=== PATIENT | female | born 1940 | race American Indian/Alaskan Native ===

== ENCOUNTER 2020-01-18 19:31 | Emergency (ER) | payer MEDICARE ==
[2020-01-18 19:56] VITALS: BP 142/96
--- NOTE | 2020-01-18 20:07 | Event Note ---
ED Screening Note ED Screening Note: 79 yo got dizzy today and fell on her r shoulder and hip fall injury preceded by dizziness This initial assessment/diagnostic orders/clinical plan/treatment(s) is/are subject to change based on patients health status, clinical progression and re- assessment by fellow clinical providers in the ED. Further treatment and workup at subsequent clinical providers discretion. Patient/guardian urged not to elope from the ED as their condition may be serious if not clinically assessed and managed. Initial orders include: xr labs ua
[2020-01-18] MEDS ORDERED: ACETAMINOPHEN 325 MG TAB PO ONE (20:10)
[2020-01-18] MEDS ORDERED: ACETAMINOPHEN 325 MG TAB ONE (20:13)
[2020-01-18 20:43] LABS: Basophils % (Auto) 0.4 % (0.0-1.8); Eosinophils % (Auto) 1.3 % (0.0-4.3); Hematocrit 37.7 % (30.3-42.9); Hemoglobin 12.7 gm/dl (10.1-14.3); Lymphocytes # (Auto) 1.6 K/mm3 (1.2-5.4); Lymphocytes % (Auto) 42.9 % (13.4-35.0); Mean Corpuscular HGB Conc 34 % (30-34); Mean Corpuscular Volume 85 fl (79-97); Monocytes # (Auto) 0.3 K/mm3 (0.0-0.8); Monocytes % (Auto) 7.3 % (0.0-7.3); Platelet Count 196 K/mm3 (140-440); Red Blood Count 4.41 M/mm3 (3.65-5.03); Red Cell Distribution Width 14.2 % (13.2-15.2)
[2020-01-18 21:00] LABS: Alanine Aminotransferase 11 units/L (7-56); Albumin 4.3 g/dL (3.9-5); BUN/Creatinine Ratio 20; Blood Urea Nitrogen 20 mg/dL (7-17); Calcium 9.8 mg/dL (8.4-10.2); Hemolysis Index 7
--- NOTE | 2020-01-18 21:08 | XRay Report ---
RIGHT HIP 3 VIEW(S) INDICATION / CLINICAL INFORMATION: MAIN COMPARISON: None available. FINDINGS: BONES / JOINT(S): No acute fracture or subluxation. Mild degenerative changes are noted of the visual ized lumbosacral spine. Mild bilateral hip arthrosis. SOFT TISSUES: No significant abnormality. ADDITIONAL FINDINGS: Abundant fecal material noted throughout the large bowel and rectal vault. Corre late clinically for constipation. Signer Name: Deric Rodríguez MD Signed: 01/18/2020 9:04 PM Workstation Name: [id number]
--- NOTE | 2020-01-18 21:10 | XRay Report ---
RIGHT SHOULDER 3 VIEW(S) INDICATION / CLINICAL INFORMATION: Pain after a fall today COMPARISON: None available. FINDINGS: BONES / JOINT(S): No acute fracture. On the scapular Y view, the distal clavicle is slightly superior to the adjacent acromion. No significant arthritis. SOFT TISSUES: No significant abnormality. ADDITIONAL FINDINGS: None. IMPRESSION: 1. Possible low-grade AC joint separation. Correlation for point tenderness over the AC joint is mary mmended. 2. No acute fracture. Signer Name: Parish Ware MD Signed: 01/18/2020 9:05 PM Workstation Name: [id number]
[2020-01-18 21:20] LABS: Bilirubin,Urine NEG (Negative); Blood,Urine MOD (Negative); Color,Urine Straw (Yellow); Protein,Urine <15 mg/dL mg/dL (Negative); Urobilinogen,Urine < 2.0 mg/dL (<2.0)
[2020-01-19] MEDS ORDERED: IBUPROFEN 600 MG TAB PO ONE (03:25)
--- NOTE | 2020-01-19 03:32 | Emergency Department Report ---
HPI - General Chief Complaint: Dizziness Time Seen by Provider: 01/18/20 20:05 - HPI HPI: This an 79-year-old -Chinese female presents to the emergency department with a complaint of some pain to the right shoulder, tailbone and the right side of her neck after a slip and fall earlier this evening. Patient was shopping at an outlet store and as she exited she slipped on some water or liquid that was on the floor. She used her right upper extremity to shield her head from hitting the ground as she fell backwards and on her right side. She denies hitting her head or any loss of consciousness. She was helped up from the ground and at first felt slightly dizzy. She denies any vision change, slurred speech, numbness or paresthesias, or any neurological deficits. At the time of my examination the patient just complains of the joint or musculoskeletal pains. She has a past medical history of hypertension. She has not taken anything for symptoms prior to presentation. Her primary care physician is a Dr. Conway through [facility]. ED Past Medical Hx - Past Medical History Previous Medical History?: Yes Hx Hypertension: Yes - Surgical History Past Surgical History?: No - Social History Smoking Status: Never Smoker Substance Use Type: None - Medications Home Medications: Home Medications Medication Instructions Recorded Confirmed Last Taken Type Ibuprofen [Motrin 600 MG tab] 600 mg PO Q8H PRN #20 tablet 01/19/20 Unknown Rx ED Review of Systems ROS: Stated complaint: SLIP AND FALL,RIGHT SHOULDER/BACK PAIN Other details as noted in HPI Comment: All other systems reviewed and negative Constitutional: denies: chills, fever Eyes: denies: eye pain, vision change ENT: denies: ear pain, throat pain Respiratory: denies: cough, shortness of breath Cardiovascular: denies: chest pain, palpitations Gastrointestinal: denies: abdominal pain, vomiting Genitourinary: denies: dysuria, discharge Musculoskeletal: arthralgia. denies: joint swelling Skin: denies: rash, lesions Neurological: denies: headache, numbness, paresthesias Physical Exam - Physical Exam Vital Signs: Vital Signs 01/18/20 01/18/20 19:55 20:15 Temperature 98.1 F Pulse Rate 77 Respiratory 14 18 Rate Blood Pressure 142/96 O2 Sat by Pulse 98 Oximetry Physical Exam: GENERAL: The patient is well-developed well-nourished. HENT: Normocephalic. Atraumatic. Patient has moist mucous membranes. EYES: Extraocular motions are intact. No nystagmus. NECK: Supple. Trachea is midline. No midline tenderness to palpation. CHEST/LUNGS: Clear to auscultation. There is no respiratory distress noted. HEART/CARDIOVASCULAR: Regular. There is no tachycardia. There is no murmur. ABDOMEN: Abdomen is soft, nontender. Patient has normal bowel sounds. SKIN: Skin is warm and dry. NEURO: The patient is awake, alert, and oriented. The patient is cooperative. The patient has no focal neurologic deficits. Normal speech. Cranial nerves II through XII grossly intact. No facial asymmetry. MUSCULOSKELETAL: There is tenderness to palpation to the right shoulder but no obvious deformity. There is no limitation range of motion but the patient has pain with movement of the right upper extremity at the shoulder. Radial pulse +2/4 and capillary refill less than 2 seconds to the affected right upper extremity. No tenderness to palpation to compression of the pelvis. There is some tenderness to palpation to the sacrum. BACK: No midline thoracic or lumbar tenderness to palpation, step-off or deformity. ED Course Vital Signs 01/18/20 01/18/20 19:55 20:15 Temperature 98.1 F Pulse Rate 77 Respiratory 14 18 Rate Blood Pressure 142/96 O2 Sat by Pulse 98 Oximetry - Reevaluation(s) Reevaluation #1: 01/19/20 06:09 Lab Results 01/18/20 01/18/20 01/18/20 Range/Units 20:11 20:11 21:03 WBC 3.7 L (4.5-11.0) K/mm3 RBC 4.41 (3.65-5.03) M/mm3 Hgb 12.7 (10.1-14.3) gm/dl Hct 37.7 (30.3-42.9) % MCV 85 (79-97) fl MCH 29 (28-32) pg MCHC 34 (30-34) % RDW 14.2 (13.2-15.2) % Plt Count 196 (140-440) K/mm3 Lymph % (Auto) 42.9 H (13.4-35.0) % Coleman % (Auto) 7.3 (0.0-7.3) % Eos % (Auto) 1.3 (0.0-4.3) % Baso % (Auto) 0.4 (0.0-1.8) % Lymph # 1.6 (1.2-5.4) K/mm3 Coleman # 0.3 (0.0-0.8) K/mm3 Eos # 0.0 (0.0-0.4) K/mm3 Baso # 0.0 (0.0-0.1) K/mm3 Seg Neutrophils % 48.1 (40.0-70.0) % Seg Neutrophils # 1.8 (1.8-7.7) K/mm3 Sodium 139 (137-145) mmol/L Potassium 3.7 (3.6-5.0) mmol/L Chloride 99.1 (98-107) mmol/L Carbon Dioxide 28 (22-30) mmol/L Anion Gap 16 mmol/L BUN 20 H (7-17) mg/dL Creatinine 1.0 (0.6-1.2) mg/dL Estimated GFR > 60 ml/min BUN/Creatinine Ratio 20 % Glucose 96 (65-100) mg/dL Calcium 9.8 (8.4-10.2) mg/dL Total Bilirubin 0.20 (0.1-1.2) mg/dL AST 19 (5-40) units/L ALT 11 (7-56) units/L Alkaline Phosphatase 73 (35-129) units/L Troponin T < 0.010 (0.00-0.029) ng/mL Total Protein 6.9 (6.3-8.2) g/dL Albumin 4.3 (3.9-5) g/dL Albumin/Globulin Ratio 1.7 % Urine Color Straw (Yellow) Urine Turbidity Clear (Clear) Urine pH 7.0 (5.0-7.0) Ur Specific [place] 1.005 (1.003-1.030) Urine Protein <15 mg/dl (Negative) mg/dL Urine Glucose (UA) Neg (Negative) mg/dL Urine Ketones Neg (Negative) mg/dL Urine Blood Mod (Negative) Urine Nitrite Neg (Negative) Urine Bilirubin Neg (Negative) Urine Urobilinogen < 2.0 (<2.0) mg/dL Ur Leukocyte Esterase Tr (Negative) Urine WBC (Auto) 1.0 (0.0-6.0) /HPF Urine RBC (Auto) 3.0 (0.0-6.0) /HPF U Epithel Cells (Auto) 2.0 (0-13.0) /HPF Urine Yeast (Budding) Few /HPF 01/18/20 Range/Units 23:09 WBC (4.5-11.0) K/mm3 RBC (3.65-5.03) M/mm3 Hgb (10.1-14.3) gm/dl Hct (30.3-42.9) % MCV (79-97) fl MCH (28-32) pg MCHC (30-34) % RDW (13.2-15.2) % Plt Count (140-440) K/mm3 Lymph % (Auto) (13.4-35.0) % Coleman % (Auto) (0.0-7.3) % Eos % (Auto) (0.0-4.3) % Baso % (Auto) (0.0-1.8) % Lymph # (1.2-5.4) K/mm3 Coleman # (0.0-0.8) K/mm3 Eos # (0.0-0.4) K/mm3 Baso # (0.0-0.1) K/mm3 Seg Neutrophils % (40.0-70.0) % Seg Neutrophils # (1.8-7.7) K/mm3 Sodium (137-145) mmol/L Potassium (3.6-5.0) mmol/L Chloride (98-107) mmol/L Carbon Dioxide (22-30) mmol/L Anion Gap mmol/L BUN (7-17) mg/dL Creatinine (0.6-1.2) mg/dL Estimated GFR ml/min BUN/Creatinine Ratio % Glucose (65-100) mg/dL Calcium (8.4-10.2) mg/dL Total Bilirubin (0.1-1.2) mg/dL AST (5-40) units/L ALT (7-56) units/L Alkaline Phosphatase (35-129) units/L Troponin T < 0.010 (0.00-0.029) ng/mL Total Protein (6.3-8.2) g/dL Albumin (3.9-5) g/dL Albumin/Globulin Ratio % Urine Color (Yellow) Urine Turbidity (Clear) Urine pH (5.0-7.0) Ur Specific [place] (1.003-1.030) Urine Protein (Negative) mg/dL Urine Glucose (UA) (Negative) mg/dL Urine Ketones (Negative) mg/dL Urine Blood (Negative) Urine Nitrite (Negative) Urine Bilirubin (Negative) Urine Urobilinogen (<2.0) mg/dL Ur Leukocyte Esterase (Negative) Urine WBC (Auto) (0.0-6.0) /HPF Urine RBC (Auto) (0.0-6.0) /HPF U Epithel Cells (Auto) (0-13.0) /HPF Urine Yeast (Budding) /HPF ED Medical Decision Making - Lab Data Result diagrams: 01/18/20 20:11 01/18/20 20:11 - EKG Data -: EKG Interpreted by De EKG shows normal: sinus rhythm, axis (Left axis deviation), intervals (Prolonged HI interval), QRS complexes (LVH, left anterior fascicular block), ST-T waves Rate: normal - EKG Data When compared to previous EKG there are: previous EKG unavailable Interpretation: other (Sinus rhythm, left axis deviation, prolonged HI interval, LVH, left anterior fascicular block) - Radiology Data Radiology results: report reviewed CERVICAL SPINE 3 VIEWS INDICATION / CLINICAL INFORMATION: fall. COMPARISON: None available. FINDINGS: The C6 and C7 vertebral bodies are not seen on the lateral view. There is mild narrowing of the C3-4 disc space. No other significant ske letal abnormality SACRUM AND COCCYX 3 VIEWS INDICATION / CLINICAL INFORMATION: fall, tailbone pain. COMPARISON: None available. FINDINGS: There is separation of the coccyx from the sacrum which is probably chronic. No other significant skeletal abnormality RIGHT HIP 3 VIEW(S) INDICATION / CLINICAL INFORMATION: MAIN COMPARISON: None available. FINDINGS: BONES / JOINT(S): No acute fracture or subluxation. Mild degenerative changes are noted of the visualized lumbosacral spine. Mild bilateral hip arthrosis. SOFT TISSUES: No significant abnormality. ADDITIONAL FINDINGS: Abundant fecal material noted throughout the large bowel and rectal vault. Correlate clinically for constipation. RIGHT SHOULDER 3 VIEW(S) INDICATION / CLINICAL INFORMATION: Pain after a fall today COMPARISON: None available. FINDINGS: BONES / JOINT(S): No acute fracture. On the scapular Y view, the distal clavicle is slightly superior to the adjacent acromion. No significant arthritis. SOFT TISSUES: No significant abnormality. ADDITIONAL FINDINGS: None. IMPRESSION: 1. Possible low-grade AC joint separation. Correlation for point tenderness over the AC joint is recommended. 2. No acute fracture. - Medical Decision Making This patient presents to the emergency department with right shoulder pain, pain towards the right buttock and sacrum, and some right lateral neck pain after a slip and fall. She did not hit her head or have any loss of consciousness. She does not have any focal, motor or sensory deficits and her cranial nerves are intact. For these reasons I did not feel that advanced CT imaging of the head was necessary at this time. Patient had an x-ray of the right hip that also shows the full AP pelvis and there was no fracture, dislocation, or any acute process. X-ray of the right shoulder may show a possible low-grade AC separation but there is no fracture or dislocation. X-ray of the cervical spine also did not show any fracture, subluxation. Patient's labs were unremarkable. The initial dizziness after her fall has resolved upon presentation to the emergency department and has not returned. She was seen ambulatory in the ER and both appears and feels stable. She will be discharged home in a an arm sling, with prescription for anti-inflammatories, and an outpatient referral for an orthopedist. She will return to the ER with any worsening of her symptoms or with any acute distress. Critical Care Time: No Critical care attestation.: If time is entered above; I have spent that time in minutes in the direct care of this critically ill patient, excluding procedure time. ED Disposition Clinical Impression: Sacral back pain Fall Qualifiers: Encounter type: initial encounter Qualified Code(s): W19.XXXA - Unspecified fall, initial encounter Right shoulder pain Qualifiers: Chronicity: acute Qualified Code(s): M25.511 - Pain in right shoulder AC separation Qualifiers: Encounter type: initial encounter Laterality: right Qualified Code(s): S43.101A - Unspecified dislocation of right acromioclavicular joint, initial encounter Disposition: TO HOME OR SELFCARE Is pt being admited?: No Condition: Stable Instructions: Acromioclavicular Separation (ED), Arthralgia (ED), Fall Preve ntion (ED) Additional Instructions: Please follow-up with your primary care physician in the next few days. I am giving you a referral for a local orthopedist, Dr. Jordan, to follow-up regarding your right shoulder pain and the pain to your lower back/buttock. Return to the emergency department with any worsening of your symptoms or with any acute distress. Prescriptions: Ibuprofen [Motrin 600 MG tab] 600 mg PO Q8H PRN #20 tablet PRN Reason: Pain Referrals: GEOVANNA CONWAY MD [Primary Care Provider] - 3-5 Days LEO JORDAN MD [Staff Physician] - 3-5 Days Time of Disposition: 04:47
--- NOTE | 2020-01-19 04:43 | XRay Report ---
CERVICAL SPINE 3 VIEWS INDICATION / CLINICAL INFORMATION: fall. COMPARISON: None available. FINDINGS: The C6 and C7 vertebral bodies are not seen on the lateral view. There is mild narrowing of the C3-4 disc space. No other significant skeletal abnormality Signer Name: Maynor Alex MD FACR Signed: 01/19/2020 4:39 AM Workstation Name: [id number]
--- NOTE | 2020-01-19 04:44 | XRay Report ---
SACRUM AND COCCYX 3 VIEWS INDICATION / CLINICAL INFORMATION: fall, tailbone pain. COMPARISON: None available. FINDINGS: There is separation of the coccyx from the sacrum which is probably chronic. No other significant ske letal abnormality Signer Name: Maynor Alex MD FACR Signed: 01/19/2020 4:40 AM Workstation Name: [id number]
== END 2020-01-19 05:09 | disposition home or self-care (01) ==
LOC: ED 19:31
DX: S43.101A Unspecified dislocation of right acromioclavicular joint, initial encounter (principal); M25.511 Pain in right shoulder; M54.2 Cervicalgia; M54.9 Dorsalgia, unspecified; I10 Essential (primary) hypertension; F17.200 Nicotine dependence, unspecified, uncomplicated; Z79.899 Other long term (current) drug therapy; Z88.0 Allergy status to penicillin; W17.89XA Other fall from one level to another, initial encounter; Y93.89 Activity, other specified; Y92.89 Other specified places as the place of occurrence of the external cause; Y99.8 Other external cause status
CPT/HCPCS: 36415; 72040; 72220; 80053; 81001; 84484; 85025; 93005

== ENCOUNTER 2020-04-23 14:40 | Observation (INO) | payer MEDICARE, OTHER ==
--- NOTE | 2020-04-23 15:36 | Event Note ---
ED Screening Note Date of service: 04/23/20 Time: 15:35 ED Screening Note: 79-year-old -[place] female presents to the emergency room for 4-day history of left arm tingling and heaviness feels like it is numb. This initial assessment/diagnostic orders/clinical plan/treatment(s) is/are s ubject to change based on patients health status, clinical progression and re- assessment by fellow clinical providers in the ED. Further treatment and workup at subsequent clinical providers discretion. Patient/guardian urged not to elope from the ED as their condition may be serious if not clinically assessed and managed. Initial orders include:
[2020-04-23 16:25] LABS: Basophils % (Auto) 0.5 % (0.0-1.8); Eosinophils % (Auto) 1.2 % (0.0-4.3); Hematocrit 40.3 % (30.3-42.9); Hemoglobin 13.4 gm/dl (10.1-14.3); Lymphocytes # (Auto) 1.4 K/mm3 (1.2-5.4); Lymphocytes % (Auto) 36.8 % (13.4-35.0); Mean Corpuscular HGB Conc 33 % (30-34); Mean Corpuscular Volume 87 fl (79-97); Monocytes # (Auto) 0.3 K/mm3 (0.0-0.8); Monocytes % (Auto) 7.6 % (0.0-7.3); Platelet Count 167 K/mm3 (140-440); Red Blood Count 4.66 M/mm3 (3.65-5.03); Red Cell Distribution Width 14.1 % (13.2-15.2)
[2020-04-23 16:40] LABS: Alanine Aminotransferase 11 units/L (7-56); Albumin 4.3 g/dL (3.9-5); BUN/Creatinine Ratio 18; Blood Urea Nitrogen 14 mg/dL (7-17); Calcium 9.9 mg/dL (8.4-10.2); Hemolysis Index 13
[2020-04-23] MEDS ORDERED: NITROGLYCERIN 2% OINT 1 GM TP ONE (20:53)
[2020-04-23] MEDS ORDERED: ASPIRIN 325 MG TAB PO ONE (20:57)
--- NOTE | 2020-04-23 20:57 | Emergency Department Report ---
HPI - General Chief Complaint: Weakness Time Seen by Provider: 04/23/20 20:39 - HPI HPI: Room 5 The patient is an 79-year-old female present with a chief complaint of left upper extremity numbness and chest pain. The patient states for the past 2 weeks she has had intermittent numbness and pain in her left upper extremity. Patient denies preceding trauma. The patient states she received her flu shot in the left upper extremity 4 days ago. The patient states yesterday she developed pain in her left chest described as a heaviness and pressure that was intermittent in nature and associated with nausea/vomiting. Patient denies shortness of breath or diaphoresis. Patient denies cough or fever. Patient states her last cardiac catheterization occurred in the . Patient denies paresthesia in the lower extremities, or dysarthria, dysphagia ED Past Medical Hx - Past Medical History Hx Hypertension: Yes Additional medical history: Hypercholesterolemia - Surgical History Additional Surgical History: Hysterectomy, bilateral tubal ligation, finger fracture, goiter removal - Family History Family history: no significant - Social History Smoking Status: Former Smoker (None x10 years) Substance Use Type: None (Denies illicit drug use) - Medications Home Medications: Home Medications Medication Instructions Recorded Confirmed Last Taken Type Ibuprofen [Motrin 600 MG tab] 600 mg PO Q8H PRN #20 tablet 01/19/20 Unknown Rx ED Review of Systems ROS: Stated complaint: LEFT ARM NUMBNESS/NAUSEA Other details as noted in HPI Constitutional: denies: diaphoresis Eyes: denies: eye pain ENT: denies: throat pain Respiratory: denies: shortness of breath Cardiovascular: chest pain Endocrine: no symptoms reported Gastrointestinal: nausea, vomiting Genitourinary: denies: dysuria Musculoskeletal: denies: back pain Neurological: paresthesias Physical Exam - Physical Exam Vital Signs: Vital Signs 04/23/20 14:43 Temperature 98.7 F Pulse Rate 84 Respiratory 14 Rate Blood Pressure 136/85 O2 Sat by Pulse 98 Oximetry Physical Exam: GENERAL: The patient is well-developed well-nourished female lying on stretcher not appearing to be in acute distress. [] HEENT: Normocephalic. Atraumatic. Extraocular motions are intact. Patient has moist mucous membranes. NECK: Supple. Trachea midline CHEST/LUNGS: Clear to auscultation. There is no respiratory distress noted. HEART/CARDIOVASCULAR: Regular. There is no tachycardia. There is no gallop rub or murmur. 2+ left radial pulse. Normal capillary refill fingers of left hand. ABDOMEN: Abdomen is soft, nontender. Patient has normal bowel sounds. There is no abdominal distention. SKIN: There is no rash. There is no edema. There is no diaphoresis. NEURO: The patient is awake, alert, and oriented. The patient is cooperative. The patient has no focal neurologic deficits. The patient has normal speech. Cranial nerves II through XII grossly intact MUSCULOSKELETAL: There is no evidence of acute injury. ED Course Vital Signs 04/23/20 14:43 Temperature 98.7 F Pulse Rate 84 Respiratory 14 Rate Blood Pressure 136/85 O2 Sat by Pulse 98 Oximetry ED Medical Decision Making - Lab Data Result diagrams: 04/23/20 15:59 04/23/20 15:59 - EKG Data -: EKG Interpreted by Me EKG shows normal: sinus rhythm Rate: normal - EKG Data When compared to previous EKG there are: previous EKG unavailable Interpretation: other (No ischemic changes seen) - Differential Diagnosis ACS, pericarditis, cervical radiculopathy, rotator cuff injury, myalgia Critical care attestation.: If time is entered above; I have spent that time in minutes in the direct care of this critically ill patient, excluding procedure time. ED Disposition Clinical Impression: Left-sided chest pain Disposition: OP ADMIT IP TO THIS HOSP Is pt being admited?: Yes Does the pt Need Aspirin: Yes Condition: Fair Instructions: Chest Pain (ED) Referrals: PRIMARY CARE, [Primary Care Provider] - 3-5 Days HEART Score - HEART Score History: Moderately suspicious EKG: Normal Age: > 65 Risk factors: 1-2 risk factors Troponin: Troponin T < 0.010 ng/mL (0.00-0.029) 04/23/20 21:15 Troponin: < normal limit HEART Score: 4
--- NOTE | 2020-04-23 22:45 | XRay Report ---
CHEST 1 VIEW 04/23/2020 8:56 PM INDICATION / CLINICAL INFORMATION: chest pain. COMPARISON: None available. FINDINGS: SUPPORT DEVICES: None. HEART / MEDIASTINUM: No significant abnormality. LUNGS / PLEURA: No significant pulmonary or pleural abnormality. No pneumothorax. ADDITIONAL FINDINGS: No significant additional findings. IMPRESSION: 1. No acute findings. Signer Name: Gerardo Lamb MD Signed: 04/23/2020 10:41 PM Workstation Name: [id number]
[2020-04-23] MEDS ORDERED: MORPHINE 2 MG/1 ML INJ IV PRN (23:02)
[2020-04-23] MEDS ORDERED: ACETAMINOPHEN 325 MG TAB PO PRN ×2 (23:02)
[2020-04-23] MEDS ORDERED: NITROGLYCERIN 0.4 MG TAB SUBL SL PRN (23:02)
[2020-04-23] MEDS ORDERED: ONDANSETRON 4 MG/2 ML INJ IV PRN (23:02)
--- NOTE | 2020-04-23 23:15 | History and Physical Report ---
History of Present Illness Date of examination: 04/23/20 Date of admission: 04/23/20 22:05 Chief complaint: Chest pain History of present illness: 79-year-old -[place] female with known history of hypertension, hyperlipidemia presenting to the emergency room today complaining of chest pain which is left-sided. Preceding the onset of chest pain which she has been having left arm numbness which has been ongoing for about 2 weeks. Patient denies any trauma to the shoulder or arm and denies any fall. She indicates that she got flu shot few days ago. Chest pain is said to feel like heaviness and pressure which was intermittent and associated with nausea and vomiting. There is no no relieving or exacerbating factor. She denies any fever or chills, no headache or dizziness, no shortness of breath, no diaphoresis. Patient indicates that she had a cardiac catheterization sometime in the early and she is not starting whether there was a coronary blockage but she was started on cholesterol medication. There was no stents placement. Work-up in the emergency room today including EKG troponin and chest x-ray were unremarkable. Patient to be worked up for chest pain. Past History Past Medical History: hypertension, hyperlipidemia Past Surgical History: thyroidectomy, hysterectomy, Other (Bilateral tubal ligation,) Social history: smoking (Former smoker) Family history: no significant family history Medications and Allergies Allergies Allergy/AdvReac Type Severity Reaction Status Date / Time Penicillins Allergy Swelling Verified 04/23/20 14:51 Home Medications Medication Instructions Recorded Confirmed Last Taken Type Ibuprofen [Motrin 600 MG tab] 600 mg PO Q8H PRN #20 tablet 01/19/20 Unknown Rx Active Meds: Active Medications Acetaminophen (Tylenol) 650 mg PO Q4H PRN PRN Reason: Pain MILD(1-3)/Fever >100.5/SANCHEZ Acetaminophen (Tylenol) 650 mg PO Q6H PRN PRN Reason: Pain, Mild (1-3) Aspirin (Ecotrin) 325 mg PO QDAY JESSICA Enoxaparin Sodium (Enoxaparin) 40 mg SUB-Q QDAY@2200 JESSICA; Protocol Morphine Sulfate (Morphine) 2 mg IV Q5MIN PRN PRN Reason: Chest Pain Nitroglycerin (Nitrostat) 0.4 mg SL Q5M PRN PRN Reason: Chest Pain Ondansetron HCl (Zofran) 4 mg IV Q8H PRN PRN Reason: Nausea And Vomiting Sodium Chloride (Sodium Chloride Flush Syringe 10 Ml) 10 ml IV BID JESSICA Sodium Chloride (Sodium Chloride Flush Syringe 10 Ml) 10 ml IV PRN PRN PRN Reason: LINE FLUSH Sodium Chloride (Sodium Chloride Flush Syringe 10 Ml) 10 ml IV PRN PRN PRN Reason: LINE FLUSH Review of Systems Constitutional: no fever, no chills Ears, nose, mouth and throat: no nasal congestion, no sore throat Cardiovascular: chest pain, no palpitations Respiratory: no cough, no shortness of breath Gastrointestinal: no abdominal pain, no nausea, no vomiting, no diarrhea Genitourinary Female: no flank pain, no dysuria, no hematuria Musculoskeletal: no neck pain, no low back pain Integumentary: no rash, no pruritis Neurological: no headaches, no confusion Psychiatric: no anxiety, no depression Exam - Constitutional Vitals: Temp Pulse Resp BP Pulse Ox 98.7 F 76 19 131/83 99 04/23/20 14:43 04/23/20 22:16 04/23/20 22:16 04/23/20 22:16 04/23/20 22:16 General appearance: Present: no acute distress, well-nourished - EENT Eyes: Present: PERRL, EOM intact. Absent: scleral icterus ENT: hearing intact, clear oral mucosa, dentition normal - Neck Neck: Present: supple, normal ROM - Respiratory Respiratory effort: normal Respiratory: bilateral: CTA - Cardiovascular Rhythm: regular Heart Sounds: Present: S1 & S2. Absent: gallop, systolic murmur, diastolic murmur, rub - Extremities Extremities: no ischemia, pulses intact, pulses symmetrical, No edema, Full ROM Peripheral Pulses: within normal limits - Abdominal General gastrointestinal: Present: soft, non-tender, non-distended, normal bowel sounds. Absent: mass - Integumentary Integumentary: Present: clear, warm, dry. Absent: rash - Musculoskeletal Musculoskeletal: strength equal bilaterally - Psychiatric Psychiatric: appropriate mood/affect, intact judgment & insight, memory intact, cooperative - Neurologic Neurologic: CNII-XII intact, no focal deficits, moves all extremities HEART Score - HEART Score History: Moderately suspicious EKG: Normal Age: > 65 Risk factors: 1-2 risk factors Troponin: Troponin T < 0.010 ng/mL (0.00-0.029) 04/23/20 21:15 Troponin: < normal limit HEART Score: 4 Results - Labs CBC & Chem 7: 04/23/20 23:57 04/23/20 23:57 Labs: Abnormal lab results 04/23/20 04/23/20 Range/Units 15:59 15:59 WBC 3.8 L (4.5-11.0) K/mm3 Lymph % (Auto) 36.8 H (13.4-35.0) % [place] % (Auto) 7.6 H (0.0-7.3) % Carbon Dioxide 31 H (22-30) mmol/L Glucose 105 H (65-100) mg/dL Assessment and Plan - Patient Problems (1) Chest pain Current Visit: Yes Status: Acute Plan to address problem: Patient admitted to telemetry. Will check serial cardiac enzymes. Patient started on aspirin, sublingual nitroglycerin and IV morphine as needed for chest pain. We will place a consult to cardiology for evaluation. (2) Hyperlipidemia Current Visit: Yes Status: Acute Plan to address problem: We will continue routine home medication and monitor lipid profile. (3) Hypertension Current Visit: Yes Status: Acute Plan to address problem: Blood pressure appears stable. We will resume routine home medications and monitor vital signs closely. (4) DVT prophylaxis Current Visit: Yes Status: Acute Plan to address problem: Patient placed on subcutaneous Lovenox. (5) Full code status Current Visit: Yes Status: Acute
[2020-04-23] MEDS ORDERED: ENOXAPARIN 40 MG/0.4 ML INJ SUB-Q ONE (23:25)
[2020-04-24] MEDS ORDERED: METOPROLOL TARTRATE 5 MG/5 ML INJ IV ONE (00:24)
[2020-04-24 00:55] LABS: Basophils % (Auto) 0.3 % (0.0-1.8); Eosinophils # (Auto) 0.1 K/mm3 (0.0-0.4); Eosinophils % (Auto) 1.6 % (0.0-4.3); Hematocrit 38.9 % (30.3-42.9); Lymphocytes # (Auto) 1.9 K/mm3 (1.2-5.4); Lymphocytes % (Auto) 38.6 % (13.4-35.0); Mean Corpuscular HGB Conc 33 % (30-34); Mean Corpuscular Volume 86 fl (79-97); Monocytes # (Auto) 0.4 K/mm3 (0.0-0.8); Monocytes % (Auto) 8.1 % (0.0-7.3); Platelet Count 161 K/mm3 (140-440); Red Blood Count 4.53 M/mm3 (3.65-5.03); Red Cell Distribution Width 14.3 % (13.2-15.2)
[2020-04-24 01:10] LABS: Blood Urea Nitrogen 13 mg/dL (7-17); Calcium 9.5 mg/dL (8.4-10.2); Hemolysis Index 8
[2020-04-24 01:19] LABS: BUN/Creatinine Ratio 19
[2020-04-24 03:11] LABS: Chol/HDL Ratio 2.15 %
[2020-04-24 06:20] LABS: Basophils % (Auto) 0.6 % (0.0-1.8); Eosinophils # (Auto) 0.1 K/mm3 (0.0-0.4); Eosinophils % (Auto) 1.7 % (0.0-4.3); Hematocrit 36.9 % (30.3-42.9); Hemoglobin 12.3 gm/dl (10.1-14.3); Lymphocytes # (Auto) 1.6 K/mm3 (1.2-5.4); Lymphocytes % (Auto) 38.6 % (13.4-35.0); Mean Corpuscular HGB Conc 33 % (30-34); Mean Corpuscular Volume 87 fl (79-97); Monocytes # (Auto) 0.4 K/mm3 (0.0-0.8); Monocytes % (Auto) 9.1 % (0.0-7.3); Platelet Count 148 K/mm3 (140-440); Red Blood Count 4.24 M/mm3 (3.65-5.03)
[2020-04-24 06:31] LABS: INR 1.19 (0.87-1.13)
[2020-04-24 06:34] LABS: BUN/Creatinine Ratio 17; Blood Urea Nitrogen 15 mg/dL (7-17); Calcium 9.4 mg/dL (8.4-10.2); Hemolysis Index 2
[2020-04-24] MEDS ORDERED: REGADENOSON 0.4 MG/5 ML INJ IV SCH (07:02)
[2020-04-24] MEDS ORDERED: REGADENOSON 0.4 MG/5 ML INJ IV ONE (07:02)
[2020-04-24] MEDS ORDERED: ASPIRIN EC 325 MG TAB PO SCH (10:00)
[2020-04-24] MEDS ORDERED: METOPROLOL TARTRATE 5 MG/5 ML INJ IV NR (11:00)
--- NOTE | 2020-04-24 11:40 | Progress Note ---
<SALINAS MONTENEGRO - Last Filed: 04/24/20 11:44> Assessment and Plan - Patient Problems (1) ACS (acute coronary syndrome) Current Visit: Yes Status: Acute Plan to address problem: Rule out 04/24 Lexiscan stress test Cardiology consulted Serial cardiac enzymes have been less than 0.01 As needed nitroglycerin and morphine Daily aspirin Telemetry monitoring Supportive care Serial ECGs with chest pain as needed (2) Hypertension Current Visit: Yes Status: Chronic Plan to address problem: Resumed hypertensive regimen once obtained and appropriate Blood pressure monitoring per protocol (3) Hyperlipidemia Current Visit: Yes Status: Chronic Plan to address problem: Continue home statin therapy once obtained (4) DVT prophylaxis Current Visit: Yes Status: Acute Plan to address problem: SCDs to bilateral lower extremity while in bed Lovenox subcu History Interval history: This is an 79-year-old female with HTN and HLD who presented to the emergency department on 04/23 complaining of intermittent left-sided chest heaviness and pressure associated with nausea and vomiting preceded by left arm numbness. Her numbness has been ongoing for about 2 weeks after she has gotten her flu shot. Recommend emergency department reveals unremarkable EKG, troponin, CXR. Cardiology was consulted and patient was scheduled for a stress test this a.m. She received her stress test this morning. RN asked to update home medication list. Patient does not complain of any chest discomfort or left arm numbness. Hospitalist Physical - Constitutional Vitals: Temp Pulse Resp BP Pulse Ox 98.8 F 120 H 18 124/83 99 04/24/20 08:05 04/24/20 10:35 04/24/20 08:05 04/24/20 10:46 04/24/20 08:05 General appearance: Present: no acute distress, well-nourished - EENT Eyes: Present: PERRL, EOM intact ENT: hearing intact, clear oral mucosa - Neck Neck: Present: supple, normal ROM - Respiratory Respiratory effort: normal Respiratory: bilateral: CTA - Cardiovascular Rhythm: regular Heart Sounds: Present: S1 & S2. Absent: systolic murmur, diastolic murmur - Extremities Extremities: no ischemia, pulses intact, pulses symmetrical, No edema, normal temperature, normal color, Full ROM Peripheral Pulses: within normal limits - Abdominal General gastrointestinal: soft, non-tender, non-distended, normal bowel sounds - Integumentary Integumentary: Present: clear, warm, dry - Psychiatric Psychiatric: appropriate mood/affect, cooperative - Neurologic Neurologic: CNII-XII intact, no focal deficits, moves all extremities - Allied Health Allied health notes reviewed: nursing HEART Score - HEART Score EKG: Normal Age: > 65 Risk factors: 1-2 risk factors Troponin: Troponin T < 0.010 ng/mL (0.00-0.029) 04/24/20 05:37 Troponin: < normal limit Results - Labs CBC & Chem 7: 04/24/20 05:37 04/24/20 05:37 Labs: Laboratory Last Values WBC 4.2 K/mm3 (4.5-11.0) L 04/24/20 05:37 RBC 4.24 M/mm3 (3.65-5.03) 04/24/20 05:37 Hgb 12.3 gm/dl (10.1-14.3) 04/24/20 05:37 Hct 36.9 % (30.3-42.9) 04/24/20 05:37 MCV 87 fl (79-97) 04/24/20 05:37 MCH 29 pg (28-32) 04/24/20 05:37 MCHC 33 % (30-34) 04/24/20 05:37 RDW 14.0 % (13.2-15.2) 04/24/20 05:37 Plt Count 148 K/mm3 (140-440) 04/24/20 05:37 Lymph % (Auto) 38.6 % (13.4-35.0) H 04/24/20 05:37 [place] % (Auto) 9.1 % (0.0-7.3) H 04/24/20 05:37 Eos % (Auto) 1.7 % (0.0-4.3) 04/24/20 05:37 Baso % (Auto) 0.6 % (0.0-1.8) 04/24/20 05:37 Lymph # (Auto) 1.6 K/mm3 (1.2-5.4) 04/24/20 05:37 [place] # (Auto) 0.4 K/mm3 (0.0-0.8) 04/24/20 05:37 Eos # (Auto) 0.1 K/mm3 (0.0-0.4) 04/24/20 05:37 Baso # (Auto) 0.0 K/mm3 (0.0-0.1) 04/24/20 05:37 Seg Neutrophils % 50.0 % (40.0-70.0) 04/24/20 05:37 Seg Neutrophils # 2.1 K/mm3 (1.8-7.7) 04/24/20 05:37 PT 15.3 Sec. (12.2-14.9) H 04/24/20 05:37 INR 1.19 (0.87-1.13) H 04/24/20 05:37 Sodium 142 mmol/L (137-145) 04/24/20 05:37 Potassium 4.1 mmol/L (3.6-5.0) 04/24/20 05:37 Chloride 102.9 mmol/L (98-107) 04/24/20 05:37 Carbon Dioxide 32 mmol/L (22-30) H 04/24/20 05:37 Anion Gap 11 mmol/L 04/24/20 05:37 BUN 15 mg/dL (7-17) 04/24/20 05:37 Creatinine 0.9 mg/dL (0.6-1.2) 04/24/20 05:37 Estimated GFR > 60 ml/min 04/24/20 05:37 BUN/Creatinine Ratio 17 % 04/24/20 05:37 Glucose 102 mg/dL (65-100) H 04/24/20 05:37 Calcium 9.4 mg/dL (8.4-10.2) 04/24/20 05:37 Total Bilirubin 0.50 mg/dL (0.1-1.2) 04/23/20 15:59 AST 17 units/L (5-40) 04/23/20 15:59 ALT 11 units/L (7-56) 04/23/20 15:59 Alkaline Phosphatase 80 units/L (35-129) 04/23/20 15:59 Troponin T < 0.010 ng/mL (0.00-0.029) 04/24/20 05:37 Total Protein 7.5 g/dL (6.3-8.2) 04/23/20 15:59 Albumin 4.3 g/dL (3.9-5) 04/23/20 15:59 Albumin/Globulin Ratio 1.3 % 04/23/20 15:59 Triglycerides 74 mg/dL (2-149) 04/23/20 23:57 Cholesterol 127 mg/dL (50-199) 04/23/20 23:57 LDL Cholesterol Direct 60 mg/dL (50-130) 04/23/20 23:57 HDL Cholesterol 59 mg/dL (40-59) 04/23/20 23:57 Cholesterol/HDL Ratio 2.15 % 04/23/20 23:57 [place]/IV: Voiding Method Toilet IV Catheter Type [Right INT / Saline Lock Antecubital] Active Medications - Current Medications Current Medications: Generic Name Dose Route Start Last Admin Trade Name Freq PRN Reason Stop Dose Admin Acetaminophen 650 mg 04/23/20 23:02 Tylenol PO Q4H PRN Pain MILD(1-3)/Fever >100.5/SANCHEZ Aspirin 325 mg 04/24/20 10:00 Ecotrin PO QDAY [facility] Enoxaparin Sodium 40 mg 04/24/20 22:00 Enoxaparin SUB-Q QDAY@2200 [facility] Protocol Metoprolol Tartrate 2.5 mg 04/24/20 11:00 04/24/20 10:35 Metoprolol IV 04/24/20 12:30 2.5 mg ONCE NR Administration Morphine Sulfate 2 mg 04/23/20 23:02 Morphine IV Q5MIN PRN Chest Pain Nitroglycerin 0.4 mg 04/23/20 23:02 Nitrostat SL Q5M PRN Chest Pain Ondansetron HCl 4 mg 04/23/20 23:02 Zofran IV Q8H PRN Nausea And Vomiting Sodium Chloride 10 ml 04/24/20 10:00 Sodium Chloride Flush Syringe 10 Ml IV BID JESSICA Sodium Chloride 10 ml 04/23/20 23:02 Sodium Chloride Flush Syringe 10 Ml IV PRN PRN LINE FLUSH Nutrition/Malnutrition Assess - Dietary Evaluation Nutrition/Malnutrition Findings: Nutrition Notes Start: 04/24/20 11:03 Freq: Status: Active Protocol: Document 04/24/20 11:04 LM (Rec: 04/24/20 11:10 LM [id number]) Nutrition Notes Need for Assessment generated from: MD Order,transcribing operator head,MST Initial or Follow up Brief Note Current Diagnosis Hypertension,Hyperlipidemia Other Pertinent Diagnosis Chest pain Current Diet Dietary supplements Labs/Tests Reviewed Pertinent Medications Reviewed Height 5 ft 4 in Weight 59.5 kg [place] Body Weight (kg) 54.54 BMI 22.5 Subjective/Other Information MD consult for ONS and RN screen for MST. Pt was not in room at time of visit. Ensure in diet orders. Burn Absent Trauma Absent Minimum of two criteria No physical signs of malnutrition #1 Nutrition Diagnosis Inadequate oral intake Etiology chest pain As Evidenced by Signs and Symptoms pt on dietary supplement diet Is patient on ventilator? No Is Patient Ambulatory and/or Out of Bed Yes REE-([place]-St. Jeor-ambulatory/OOB) [ 1365.000 NUTR.MSJOOB] Calculation Used for Recommendations [facility] Additional Notes Protein: 60-71g (1-1.2g/kg) Fluid: 1ml/kcal Nutrition Intervention Change Diet Order: cardiac when medically feasible Add Supplement/Snack (indicate name/kcal Ensure Enlive BID /protein ) Provides kCal: 700 Provides Protein (gm) 40 Goal #1 Diet advancement Anticipated Discharge Needs: cardiac Follow-Up By: 04/26/20 Additional Comments F/U for diet advancement, intakes, full assessment <SRIDHAR THOMAS R - Last Filed: 04/24/20 14:50> Assessment and Plan Assessment and plan: I saw and evaluated the patient. I agree with the findings and the plan of care as documented in the Nurse Practitioner's~note. Hospitalist Physical - Constitutional Vitals: Temp Pulse Resp BP Pulse Ox 98.8 F 120 H 18 124/83 99 04/24/20 08:05 04/24/20 10:35 04/24/20 08:05 04/24/20 10:46 04/24/20 08:05 HEART Score - HEART Score Troponin: Troponin T < 0.010 ng/mL (0.00-0.029) 04/24/20 05:37 Results - Labs CBC & Chem 7: 04/24/20 05:37 04/24/20 05:37 Labs: Laboratory Last Values WBC 4.2 K/mm3 (4.5-11.0) L 04/24/20 05:37 RBC 4.24 M/mm3 (3.65-5.03) 04/24/20 05:37 Hgb 12.3 gm/dl (10.1-14.3) 04/24/20 05:37 Hct 36.9 % (30.3-42.9) 04/24/20 05:37 MCV 87 fl (79-97) 04/24/20 05:37 MCH 29 pg (28-32) 04/24/20 05:37 MCHC 33 % (30-34) 04/24/20 05:37 RDW 14.0 % (13.2-15.2) 04/24/20 05:37 Plt Count 148 K/mm3 (140-440) 04/24/20 05:37 Lymph % (Auto) 38.6 % (13.4-35.0) H 04/24/20 05:37 [place] % (Auto) 9.1 % (0.0-7.3) H 04/24/20 05:37 Eos % (Auto) 1.7 % (0.0-4.3) 04/24/20 05:37 Baso % (Auto) 0.6 % (0.0-1.8) 04/24/20 05:37 Lymph # (Auto) 1.6 K/mm3 (1.2-5.4) 04/24/20 05:37 [place] # (Auto) 0.4 K/mm3 (0.0-0.8) 04/24/20 05:37 Eos # (Auto) 0.1 K/mm3 (0.0-0.4) 04/24/20 05:37 Baso # (Auto) 0.0 K/mm3 (0.0-0.1) 04/24/20 05:37 Seg Neutrophils % 50.0 % (40.0-70.0) 04/24/20 05:37 Seg Neutrophils # 2.1 K/mm3 (1.8-7.7) 04/24/20 05:37 PT 15.3 Sec. (12.2-14.9) H 04/24/20 05:37 INR 1.19 (0.87-1.13) H 04/24/20 05:37 Sodium 142 mmol/L (137-145) 04/24/20 05:37 Potassium 4.1 mmol/L (3.6-5.0) 04/24/20 05:37 Chloride 102.9 mmol/L (98-107) 04/24/20 05:37 Carbon Dioxide 32 mmol/L (22-30) H 04/24/20 05:37 Anion Gap 11 mmol/L 04/24/20 05:37 BUN 15 mg/dL (7-17) 04/24/20 05:37 Creatinine 0.9 mg/dL (0.6-1.2) 04/24/20 05:37 Estimated GFR > 60 ml/min 04/24/20 05:37 BUN/Creatinine Ratio 17 % 04/24/20 05:37 Glucose 102 mg/dL (65-100) H 04/24/20 05:37 Calcium 9.4 mg/dL (8.4-10.2) 04/24/20 05:37 Total Bilirubin 0.50 mg/dL (0.1-1.2) 04/23/20 15:59 AST 17 units/L (5-40) 04/23/20 15:59 ALT 11 units/L (7-56) 04/23/20 15:59 Alkaline Phosphatase 80 units/L (35-129) 04/23/20 15:59 Troponin T < 0.010 ng/mL (0.00-0.029) 04/24/20 05:37 Total Protein 7.5 g/dL (6.3-8.2) 04/23/20 15:59 Albumin 4.3 g/dL (3.9-5) 04/23/20 15:59 Albumin/Globulin Ratio 1.3 % 04/23/20 15:59 Triglycerides 74 mg/dL (2-149) 04/23/20 23:57 Cholesterol 127 mg/dL (50-199) 04/23/20 23:57 LDL Cholesterol Direct 60 mg/dL (50-130) 04/23/20 23:57 HDL Cholesterol 59 mg/dL (40-59) 04/23/20 23:57 Cholesterol/HDL Ratio 2.15 % 04/23/20 23:57 [place]/IV: Voiding Method Toilet IV Catheter Type [Right INT / Saline Lock Antecubital] Active Medications - Current Medications Current Medications: Generic Name Dose Route Start Last Admin Trade Name Freq PRN Reason Stop Dose Admin Acetaminophen 650 mg 04/23/20 23:02 Tylenol PO Q4H PRN Pain MILD(1-3)/Fever >100.5/SANCHEZ Amlodipine Besylate 10 mg 04/24/20 12:58 04/24/20 13:13 Amlodipine PO 10 mg DAILY JESSICA Administration Apixaban 2.5 mg 04/24/20 14:00 04/24/20 13:13 Eliquis PO 2.5 mg Q12HR JESSICA Administration Protocol Metoprolol Tartrate 25 mg 04/24/20 13:00 04/24/20 13:13 Metoprolol PO 25 mg Q8H JESSICA Administration Morphine Sulfate 2 mg 04/23/20 23:02 Morphine IV Q5MIN PRN Chest Pain Nitroglycerin 0.4 mg 04/23/20 23:02 Nitrostat SL Q5M PRN Chest Pain Ondansetron HCl 4 mg 04/23/20 23:02 Zofran IV Q8H PRN Nausea And Vomiting Pravastatin Sodium 40 mg 04/24/20 22:00 Pravachol PO QHS [facility] Sodium Chloride 10 ml 04/24/20 10:00 04/24/20 13:14 Sodium Chloride Flush Syringe 10 Ml IV Not Given BID JESSICA Sodium Chloride 10 ml 04/23/20 23:02 Sodium Chloride Flush Syringe 10 Ml IV PRN PRN LINE FLUSH Nutrition/Malnutrition Assess - Dietary Evaluation Nutrition/Malnutrition Findings: Nutrition Notes Start: 04/24/20 11:03 Freq: Status: Active Protocol: Document 04/24/20 11:04 LM (Rec: 04/24/20 11:10 LM [id number]) Nutrition Notes Need for Assessment generated from: MD Order,transcribing operator head,MST Initial or Follow up Brief Note Current Diagnosis Hypertension,Hyperlipidemia Other Pertinent Diagnosis Chest pain Current Diet Dietary supplements Labs/Tests Reviewed Pertinent Medications Reviewed Height 5 ft 4 in Weight 59.5 kg [place] Body Weight (kg) 54.54 BMI 22.5 Subjective/Other Information MD consult for ONS and RN screen for MST. Pt was not in room at time of visit. Ensure in diet orders. Burn Absent Trauma Absent Minimum of two criteria No physical signs of malnutrition #1 Nutrition Diagnosis Inadequate oral intake Etiology chest pain As Evidenced by Signs and Symptoms pt on dietary supplement diet Is patient on ventilator? No Is Patient Ambulatory and/or Out of Bed Yes REE-([place]-St. Jeor-ambulatory/OOB) [ 1365.000 NUTR.MSJOOB] Calculation Used for Recommendations [place]-St Jeor Additional Notes Protein: 60-71g (1-1.2g/kg) Fluid: 1ml/kcal Nutrition Intervention Change Diet Order: cardiac when medically feasible Add Supplement/Snack (indicate name/kcal Ensure Enlive BID /protein ) Provides kCal: 700 Provides Protein (gm) 40 Goal #1 Diet advancement Anticipated Discharge Needs: cardiac Follow-Up By: 04/26/20 Additional Comments F/U for diet advancement, intakes, full assessment
[2020-04-24] MEDS ORDERED: NON-FORMULARY EACH (Simvastatin [Simvastatin] 20 MG) PO SCH (12:00)
--- NOTE | 2020-04-24 12:41 | Consultation ---
History of Present Illness Consult date: 04/24/20 Consult reason: chest pain History of present illness: The patient is an 79-year-old woman with a history of hypertension, no prior cardiac history. She presented to the hospital with a 2-week history of numbness down her left arm. He had previously gone to her primary doctor at [facility] with this complaint, and the determined it was likely due to arthritis and C-spine radiculopathy. Following that, a week ago she then had a flu vaccine shot over the left deltoid, and subsequently developed pain in the left shoulder and left upper chest, prompting her presentation to the hospital emergency room. She was evaluated and referred for admission. Patient has no exertional chest pain, no shortness of breath, no palpitations and no lower extremity edema. EKG on presentation was a normal sinus rhythm, left axis deviation, left ventricular hypertrophy with mild repolarization abnormalities of LVH. In review of her recent records show that 8 months ago, she was at [facility] where she had an exercise echocardiogram stress test, exercised 6 minutes of a David protocol. Baseline LV function was 55 to 60%. The stress echo test was normal. Today, she underwent exercise thallium stress test ordered by the medical service. Patient again exercised for 6 minutes of a David protocol, with no chest pain and no ST changes of ischemia. At peak exercise however she developed rapid atrial fibrillation, during which she remained largely asymptomatic, blood pressure was stable, and atrial fibrillation resolved promptly on cessation of exercise. Thallium images were normal. Past History Past Medical History: hypertension, hyperlipidemia Past Surgical History: thyroidectomy, hysterectomy, Other (Bilateral tubal ligation,) Social history: smoking (Former smoker) Family history: no significant family history Medications and Allergies Allergies Allergy/AdvReac Type Severity Reaction Status Date / Time Penicillins Allergy Swelling Verified 04/23/20 14:51 Home Medications Medication Instructions Recorded Confirmed Last Taken Type Aspirin [Aspirin BABY CHEW TAB] 81 mg PO QDAY 04/24/20 04/24/20 Unknown History Metoprolol Xl [Metoprolol 50 mg PO QDAY 04/24/20 04/24/20 Unknown History SUCCINATE ER TAB] Simvastatin 20 mg PO QDAY 04/24/20 04/24/20 Unknown History amLODIPine [Norvasc] 10 mg PO DAILY 04/24/20 04/24/20 Unknown History Active Meds: Active Medications Acetaminophen (Tylenol) 650 mg PO Q4H PRN PRN Reason: Pain MILD(1-3)/Fever >100.5/SANCHEZ Amlodipine Besylate (Amlodipine) 10 mg PO DAILY [facility] Aspirin (Ecotrin) 325 mg PO QDAY [facility] Enoxaparin Sodium (Enoxaparin) 40 mg SUB-Q QDAY@2200 JESSICA; Protocol Morphine Sulfate (Morphine) 2 mg IV Q5MIN PRN PRN Reason: Chest Pain Nitroglycerin (Nitrostat) 0.4 mg SL Q5M PRN PRN Reason: Chest Pain Ondansetron HCl (Zofran) 4 mg IV Q8H PRN PRN Reason: Nausea And Vomiting Pravastatin Sodium (Pravachol) 40 mg PO QHS [facility] Sodium Chloride (Sodium Chloride Flush Syringe 10 Ml) 10 ml IV BID [facility] Sodium Chloride (Sodium Chloride Flush Syringe 10 Ml) 10 ml IV PRN PRN PRN Reason: LINE FLUSH Review of Systems Cardiovascular: chest pain, no orthopnea, no palpitations, no rapid/irregular heart beat, no edema, no syncope, no lightheadedness, no shortness of breath Physical Examination Vital Signs Temp Pulse Resp BP Pulse Ox 98.7 F 84 14 136/85 98 04/23/20 14:43 04/23/20 14:43 04/23/20 14:43 04/23/20 14:43 04/23/20 14:43 General appearance: no acute distress HEENT: Positive: PERRL Neck: Positive: neck supple Cardiac: Positive: Reg Rate and Rhythm Lungs: Positive: clear to auscultation Neuro: Positive: Grossly Intact Abdomen: Positive: Soft Female genitourinary: deferred Skin: Positive: Clear Extremities: Absent: edema Results 04/24/20 05:37 04/24/20 05:37 Cardiac Enzymes 04/23/20 Range/Units 15:59 AST 17 (5-40) units/L Coagulation 04/24/20 Range/Units 05:37 PT 15.3 H (12.2-14.9) Sec. INR 1.19 H (0.87-1.13) Lipids 04/23/20 Range/Units 23:57 Triglycerides 74 (2-149) mg/dL Cholesterol 127 (50-199) mg/dL HDL Cholesterol 59 (40-59) mg/dL Cholesterol/HDL Ratio 2.15 % CBC 04/23/20 04/23/20 04/24/20 Range/Units 15:59 23:57 05:37 WBC 3.8 L 4.8 4.2 L (4.5-11.0) K/mm3 RBC 4.66 4.53 4.24 (3.65-5.03) M/mm3 Hgb 13.4 13.0 12.3 (10.1-14.3) gm/dl Hct 40.3 38.9 36.9 (30.3-42.9) % Plt Count 167 161 148 (140-440) K/mm3 Lymph # (Auto) 1.4 1.9 1.6 (1.2-5.4) K/mm3 [place] # (Auto) 0.3 0.4 0.4 (0.0-0.8) K/mm3 Eos # (Auto) 0.0 0.1 0.1 (0.0-0.4) K/mm3 Baso # (Auto) 0.0 0.0 0.0 (0.0-0.1) K/mm3 Comprehensive Metabolic Panel 04/23/20 04/23/20 04/24/20 Range/Units 15:59 23:57 05:37 Sodium 141 139 142 (137-145) mmol/L Potassium 4.3 3.6 4.1 (3.6-5.0) mmol/L Chloride 101.9 102.5 102.9 (98-107) mmol/L Carbon Dioxide 31 H 26 32 H (22-30) mmol/L BUN 14 13 15 (7-17) mg/dL Creatinine 0.8 0.7 0.9 (0.6-1.2) mg/dL Glucose 105 H 92 102 H (65-100) mg/dL Calcium 9.9 9.5 9.4 (8.4-10.2) mg/dL AST 17 (5-40) units/L ALT 11 (7-56) units/L Alkaline Phosphatase 80 (35-129) units/L Total Protein 7.5 (6.3-8.2) g/dL Albumin 4.3 (3.9-5) g/dL EKG interpretations - Telemetry EKG Rhythm: Sinus Rhythm Assessment and Plan - Patient Problems (1) Chest pain Current Visit: Yes Status: Acute Plan to address problem: Patient presented with left arm numbness suggestive of cervical radiculopathy, and atypical, musculoskeletal type chest pain. Exercise thallium stress test is normal with no ischemic defects. During exercise however she developed rapid atrial fibrillation, which resolved on cessation of exercise. (2) Paroxysmal atrial fibrillation Current Visit: Yes Status: Acute Plan to address problem: Rapid atrial fibrillation noted on exercise stress test. The patient will be treated with metoprolol and will add Eliquis for stroke prophylaxis. Due to patient's low body weight of 59 kg, she will be treated with 2.5 mg of Eliquis twice daily.
[2020-04-24] MEDS: amLODIPine 10 MG TAB PO SCH (13:13)
[2020-04-24] MEDS: APIXABAN 2.5 MG TAB PO SCH ×2 (13:13→22:52)
[2020-04-24] MEDS: METOPROLOL TARTRATE 25 MG TAB PO SCH ×2 (13:13→22:51)
[2020-04-24] MEDS ORDERED: ENOXAPARIN 40 MG/0.4 ML INJ SUB-Q SCH (22:00)
[2020-04-24] MEDS ORDERED: PRAVASTATIN 40 MG TAB PO SCH (22:00)
--- NOTE | 2020-04-24 22:54 | Treadmill Report ---
THALLIUM STRESS TEST REPORT LEFT VENTRICLE: Left ventricular chamber size is within normal spread. Perfusion study demonstrates homogeneous uptake of the tracer in all segments, no significant defects identified. Gated analysis demonstrates normal left ventricular systolic function, ejection fraction 61%. CONCLUSION: Normal myocardial perfusion study. JOB# [id number] CA/NTS
[2020-04-25] MEDS: METOPROLOL TARTRATE 25 MG TAB PO SCH ×2 (06:02→13:02)
--- NOTE | 2020-04-25 09:16 | Progress Note ---
Assessment and Plan Chest pain, atypical Exercise thallium stress test is normal with no ischemic defects. EF 61%. 8 months ago, at [facility] an exercise echocardiogram stress test, exercised 6 minutes of a David protocol. Baseline LV function was 55 to 60%. The stress echo test was normal. Paroxysmal atrial fibrillation Rapid atrial fibrillation noted on exercise stress test. started on low dose Eliquis for stroke prophylaxis. on metoprolol for suppression Left arm numbness suggestive of cervical radiculopathy Hypertension Continue medical therapy for paroxysmal atrial fibrillation. Stable cardiac shetty. Once discharged, patient will follow up in our office within 5-7 days. Subjective Date of service: 04/25/20 Interval history: Patient is resting in bed and appears comfortable. She denies chest pain and denies shortness of breath. Stable sinus rhythm on telemetry. Objective Vital Signs Temp Pulse Resp BP Pulse Ox 04/25/20 06:02 60 111/71 04/25/20 04:04 98.3 F 60 20 111/71 96 04/24/20 23:54 98.1 F 67 20 115/71 96 04/24/20 22:51 75 109/73 04/24/20 22:00 60 04/24/20 19:57 99.0 F 75 20 109/73 97 04/24/20 15:56 98.3 F 59 L 20 121/74 99 04/24/20 10:46 124/83 04/24/20 10:44 131/95 04/24/20 10:42 123/85 04/24/20 10:40 133/79 04/24/20 10:39 150/85 04/24/20 10:37 166/96 04/24/20 10:35 120 H 04/24/20 09:27 120/80 - Physical Examination General: No Apparent Distress HEENT: Positive: PERRL Neck: Positive: neck supple Cardiac: Positive: Reg Rate and Rhythm Lungs: Positive: Decreased Breath Sounds Neuro: Positive: Grossly Intact Abdomen: Positive: Soft Extremities: Absent: edema
--- NOTE | 2020-04-25 10:40 | Discharge Summary ---
Providers - Providers Date of Admission: 04/23/20 22:05 Attending physician: SRIDHAR THOMAS 04/23/20 Consult to Cardiac Rehabilitation [CONS] Routine Reason For Exam: Phase I 04/23/20 23:03 Consult to Cardiology [CONS] Routine Consulting Provider: MIGUELANGEL KAUR Reason For Exam: chest pain 04/24/20 01:05 Consult to Dietitian/Nutrition [CONS] Routine Physician Instructions: Reason For Exam: Reason for Consult: Pt needs oral supplement Primary care physician: HEEL DIPPER Hospitalization Condition: Fair Hospital course: This is an 79-year-old female with HTN and HLD who presented to the emergency department on 04/23 complaining of intermittent left-sided chest heaviness and pressure associated with nausea and vomiting preceded by left arm numbness. Her numbness has been ongoing for about 2 weeks after she has gotten her flu shot. Work-up in the emergency department reveals unremarkable EKG, troponin, and CXR. Cardiology was consulted patient underwent a stress test on 04/24 when she was noted to be in A. fib with RVR during peak exercise and she was started on metoprolol for rate control and Eliquis for stroke prophylaxis. Patient will need to follow-up with her primary care physician and cardiology within 1 weeks of discharge. - Patient Problems (1) Costochondritis Current Visit: Yes Status: acute Plan to address problem: 04/24 exercise thallium stress test: 6 minutes of a David protocol. Baseline LV function was 55 to 60%. The stress echo test was normal. During the test she had A. fib with RVR during peak exercise. Cardiology has started her on metoprolol and Eliquis for CVA prevention. Cardiology consulted, patient will follow up in office within 5-7 days. Serial cardiac enzymes have been less than 0.01 As needed nitroglycerin and morphine Continue Daily aspirin, metoprolol and eliquis Exercise thallium stress test is normal with no ischemic defects. EF 61%. -8 months ago, at [facility] an exercise echocardiogram stress test, exercised -6 minutes of a David protocol. Baseline LV function was 55 to 60%. The stress echo test was normal. (2) Hypertension Current Visit: Yes Status: Chronic Plan to address problem: Continue BP medications Blood pressure monitoring per PCP (3) Hyperlipidemia Current Visit: Yes Status: Chronic Plan to address problem: Continue home statin therapy Disposition: DC- TO HOME OR SELFCARE Time spent for discharge: 35 Core Measure Documentation - Palliative Care Palliative Care/ Comfort Measures: Not Applicable - Core Measures Any of the following diagnoses?: none Exam - Constitutional Vitals: Temp Pulse Resp BP Pulse Ox 98.6 F 60 20 131/62 98 04/25/20 08:34 04/25/20 08:34 04/25/20 08:34 04/25/20 08:34 04/25/20 08:34 General appearance: Present: no acute distress - EENT Eyes: Present: PERRL, EOM intact ENT: hearing intact, clear oral mucosa - Neck Neck: Present: normal ROM - Respiratory Respiratory effort: normal Respiratory: bilateral: CTA - Extremities Extremities: no ischemia, pulses intact, pulses symmetrical, No edema, normal temperature, normal color, Full ROM Peripheral Pulses: within normal limits - Abdominal General gastrointestinal: Present: soft, non-tender, normal bowel sounds - Integumentary Integumentary: Present: warm, dry - Musculoskeletal Musculoskeletal: strength equal bilaterally - Psychiatric Psychiatric: appropriate mood/affect, memory intact, cooperative - Neurologic Neurologic: CNII-XII intact, no focal deficits, moves all extremities - Allied Health Allied health notes reviewed: nursing Plan Activity: advance as tolerated Diet: low fat, low cholesterol, low salt Special Instructions: record daily BP diary Additional Instructions: Continues emergency department contact primary care physician if experience worsening symptoms. Follow-up with cardiology within 5 days in the office. Follow-up with your primary care physician within treatment discharge. Continue medications have been prescribed to you during this hospital stay. Follow up with: TRACEY PENA MD [Primary Care Provider] - 3-5 Days VERONICA LYNN MD [Staff Physician] - 7 Days Prescriptions: amLODIPine 10 mg PO DAILY #30 tab Apixaban [Eliquis] 2.5 mg PO Q12HR #60 tab Metoprolol [Lopressor TAB] 25 mg PO BID #60 tablet Nitroglycerin [Nitrostat] 0.4 mg SL Q5M PRN #14 tablet PRN Reason: Chest Pain Simvastatin 20 mg PO QDAY #30 tab
[2020-04-25] MEDS: amLODIPine 10 MG TAB PO SCH (11:42)
[2020-04-25] MEDS: APIXABAN 2.5 MG TAB PO SCH (11:43)
[2020-04-25 12:44] VITALS: BP 121/69
[2020-04-25 13:43] LABS: Hemoglobin 13.5 gm/dl (10.1-14.3)
== END 2020-04-25 14:15 | disposition home or self-care (01) ==
LOC: ED 14:40 → 4A 22:05
PROVIDERS: ADMIT Internal Medicine Geriatric Medicine; ATTEND Internal Medicine
DX: R07.89 Other chest pain (principal); I10 Essential (primary) hypertension; I24.9 Acute ischemic heart disease, unspecified; I48.0 Paroxysmal atrial fibrillation; M94.0 Chondrocostal junction syndrome [Tietze]; E78.5 Hyperlipidemia, unspecified; E78.00 Pure hypercholesterolemia, unspecified; Z90.710 Acquired absence of both cervix and uterus; Z98.51 Tubal ligation status; Z98.890 Other specified postprocedural states; Z87.891 Personal history of nicotine dependence; Z79.82 Long term (current) use of aspirin
CPT/HCPCS: 36415; 71045; 78452; 80048; 80053; 80061; 84484; 85014; 85018; 85025; 85610; 87116; 87641; 93005; 93017; 96374; 99285; A9270; A9502; G0378; J1650; J2785

== ENCOUNTER 2020-06-08 18:01 | Observation (INO) | payer MEDICARE, OTHER ==
--- NOTE | 2020-06-08 18:22 | Event Note ---
ED Screening Note ED Screening Note: Patient is an 79-year-old female comes to the ER with severe abdominal pain. She is doubled over in pain. She states that the pain is all over her abdomen radiating from her back. She does have a history of kidney stones. She denies any blood in her urine. This pain was acute. Blood pressure mildly elevated. She has a recent admission for coronary artery disease under normal stress test. This initial assessment/diagnostic orders/clinical plan/treatment(s) is/are subject to change based on patients health status, clinical progression and re- assessment by fellow clinical providers in the ED. Further treatment and workup at subsequent clinical providers discretion. Patient/guardian urged not to elope from the ED as their condition may be serious if not clinically assessed and managed. Initial orders include: EKG, UA, labs and chest x-ray.
[2020-06-08 19:09] LABS: Basophils % (Auto) 0.4 % (0.0-1.8); Eosinophils % (Auto) 0.6 % (0.0-4.3); Hematocrit 35.9 % (30.3-42.9); Lymphocytes # (Auto) 1.4 K/mm3 (1.2-5.4); Lymphocytes % (Auto) 23.2 % (13.4-35.0); Mean Corpuscular HGB Conc 33 % (30-34); Mean Corpuscular Volume 87 fl (79-97); Monocytes # (Auto) 0.4 K/mm3 (0.0-0.8); Monocytes % (Auto) 5.9 % (0.0-7.3); Platelet Count 171 K/mm3 (140-440); Red Blood Count 4.13 M/mm3 (3.65-5.03); Red Cell Distribution Width 13.9 % (13.2-15.2)
--- NOTE | 2020-06-08 19:19 | XRay Report ---
CHEST PA AND LATERAL VIEWS INDICATION: cp. COMPARISON: 12/21/2010 FINDINGS: Support devices: None Heart: Within normal limits and unchanged Lungs/Pleura: No acute pulmonary or pleural findings. IMPRESSION: 1. No acute disease and no interval change. Signer Name: Bossman Mcguire MD Signed: 06/08/2020 7:15 PM Workstation Name: [id number]
[2020-06-08 19:29] LABS: Blood Urea Nitrogen 15 mg/dL (7-17); Calcium 9.3 mg/dL (8.4-10.2)
[2020-06-08 19:30] LABS: Alanine Aminotransferase 10 units/L (7-56); Albumin 4.2 g/dL (3.9-5); Hemolysis Index 4
[2020-06-08 19:36] LABS: BUN/Creatinine Ratio 21
[2020-06-08 19:50] LABS: Bacteria,Urine 1+ /HPF (Negative); Bilirubin,Urine NEG (Negative); Blood,Urine SM (Negative); Color,Urine Straw (Yellow); Mucus,Urine FEW /HPF; Protein,Urine <15 mg/dL mg/dL (Negative); Urobilinogen,Urine < 2.0 mg/dL (<2.0); WBC,Urine < 1.0 /HPF (0.0-6.0)
[2020-06-08] MEDS ORDERED: SODIUM CHLORIDE 0.9% 1000 ML 1,000 ML IV ONE (20:30)
[2020-06-08] MEDS ORDERED: MORPHINE 4 MG/1 ML INJ IV ONE (22:29)
[2020-06-08] MEDS ORDERED: ONDANSETRON 4 MG/2 ML INJ IV ONE (22:29)
--- NOTE | 2020-06-08 22:37 | Emergency Department Report ---
ED Abdominal Pain HPI - General Chief Complaint: Abdominal Pain Stated Complaint: BACK PAIN Time Seen by Provider: 06/08/20 18:19 Source: patient Mode of arrival: Wheelchair Limitations: No Limitations - History of Present Illness Initial Comments: 79-year-old female with a past medical history of hypertension, atrial fibrillation currently on Eliquis, elevated cholesterol, CAD, and previous hysterectomy presents to the hospital complaining of sudden onset abdominal pain that [place] Pt ate prior to going to the [facility]. Patient states that she is having 9/10 constant pain in her lower and upper abdomen radiating to her back and chest. Pain worse with palpation. No alleviating factors. Multiple episodes of vomiting. No diarrhea. She denies melena, hematochezia, hematemesis, fever, or dysuria. Patient is on Eliquis currently for atrial fibrillation. As per medical record review she was admitted here in April for chest pain work-up and had a negative stress test and had episode with A. fib with RVR. EF 61% he was diagnosed with costochondritis. - Related Data Home Medications Medication Instructions Recorded Confirmed Last Taken Aspirin [Aspirin BABY CHEW TAB] 81 mg PO QDAY 04/24/20 04/24/20 Unknown Previous Rx's Medication Instructions Recorded Last Taken Type Apixaban [Eliquis] 2.5 mg PO Q12HR #60 tab 04/25/20 Unknown Rx Metoprolol [Lopressor TAB] 25 mg PO BID #60 tablet 04/25/20 Unknown Rx Nitroglycerin [Nitrostat] 0.4 mg SL Q5M PRN #14 tablet 04/25/20 Unknown Rx Simvastatin 20 mg PO QDAY #30 tab 04/25/20 Unknown Rx amLODIPine 10 mg PO DAILY #30 tab 04/25/20 Unknown Rx Allergies Allergy/AdvReac Type Severity Reaction Status Date / Time Penicillins Allergy Swelling Verified 06/08/20 18:17 ED Review of Systems ROS: Stated complaint: BACK PAIN Other details as noted in HPI Comment: All other systems reviewed and negative ED Past Medical Hx - Past Medical History Hx Hypertension: Yes Additional medical history: Hypercholesterolemia CAD, atrial fibrillation - Surgical History Additional Surgical History: Hysterectomy, bilateral tubal ligation, finger fracture, goiter removal - Social History Smoking Status: Never Smoker Substance Use Type: None - Medications Home Medications: Home Medications Medication Instructions Recorded Confirmed Last Taken Type Aspirin [Aspirin BABY CHEW TAB] 81 mg PO QDAY 04/24/20 04/24/20 Unknown History Apixaban [Eliquis] 2.5 mg PO Q12HR #60 tab 04/25/20 Unknown Rx Metoprolol [Lopressor TAB] 25 mg PO BID #60 tablet 04/25/20 Unknown Rx Nitroglycerin [Nitrostat] 0.4 mg SL Q5M PRN #14 tablet 04/25/20 Unknown Rx Simvastatin 20 mg PO QDAY #30 tab 04/25/20 Unknown Rx amLODIPine 10 mg PO DAILY #30 tab 04/25/20 Unknown Rx ED Physical Exam - General Limitations: No Limitations - Other Other exam information: General: Moderate distress secondary to pain Head: Atraumatic Eyes: normal appearance ENT: Moist mucous membranes Neck: Normal appearance, no midline tenderness Chest: Clear to auscultation bilaterally CV: Regular rate and rhythm Abdomen: Soft, normal bowel sounds, right lower quadrant and epigastric tenderness, nondistended, no rebound or guarding Back: Normal inspection Extremity: Normal inspection, full range of motion Neuro: Alert O x 3, no facial asymmetry, speech clear, no gross motor sensory deficit Psych: Appropriate behavior Skin: No rash ED Course Vital Signs 06/08/20 18:19 Temperature 97.7 F Pulse Rate 72 Respiratory 18 Rate Blood Pressure 144/94 O2 Sat by Pulse 98 Oximetry - Reevaluation(s) Reevaluation #1: 06/09/20 00:59 Patient feeling much better with morphine and zofran. - Consultations Consultation #1: 06/09/20 00:58 Case discussed with vascular doctor Dr. Obando who requests admission to the hospital for observation. His group will assess patient tomorrow ED Medical Decision Making - Lab Data Result diagrams: 06/08/20 18:54 06/08/20 18:54 Lab Results 06/08/20 06/08/20 06/08/20 Range/Units 18:54 18:54 18:54 WBC 5.9 (4.5-11.0) K/mm3 RBC 4.13 (3.65-5.03) M/mm3 Hgb 12.0 (10.1-14.3) gm/dl Hct 35.9 (30.3-42.9) % MCV 87 (79-97) fl MCH 29 (28-32) pg MCHC 33 (30-34) % RDW 13.9 (13.2-15.2) % Plt Count 171 (140-440) K/mm3 Lymph % (Auto) 23.2 (13.4-35.0) % [place] % (Auto) 5.9 (0.0-7.3) % Eos % (Auto) 0.6 (0.0-4.3) % Baso % (Auto) 0.4 (0.0-1.8) % Lymph # (Auto) 1.4 (1.2-5.4) K/mm3 [place] # (Auto) 0.4 (0.0-0.8) K/mm3 Eos # (Auto) 0.0 (0.0-0.4) K/mm3 Baso # (Auto) 0.0 (0.0-0.1) K/mm3 Seg Neutrophils % 69.9 (40.0-70.0) % Seg Neutrophils # 4.1 (1.8-7.7) K/mm3 Sodium 139 (137-145) mmol/L Potassium 3.4 L (3.6-5.0) mmol/L Chloride 102.1 (98-107) mmol/L Carbon Dioxide 25 (22-30) mmol/L Anion Gap 15 mmol/L BUN 15 (7-17) mg/dL Creatinine 0.7 (0.6-1.2) mg/dL Estimated GFR > 60 ml/min BUN/Creatinine Ratio 21 % Glucose 140 H (65-100) mg/dL Lactic Acid (0.7-2.0) mmol/L Calcium 9.3 (8.4-10.2) mg/dL Total Bilirubin 0.30 (0.1-1.2) mg/dL AST 19 (5-40) units/L ALT 10 (7-56) units/L Alkaline Phosphatase 67 (35-129) units/L Troponin T < 0.010 (0.00-0.029) ng/mL Total Protein 7.3 (6.3-8.2) g/dL Albumin 4.2 (3.9-5) g/dL Albumin/Globulin Ratio 1.4 % Lipase 44 (13-60) units/L Urine Color (Yellow) Urine Turbidity (Clear) Urine pH (5.0-7.0) Ur Specific [place] (1.003-1.030) Urine Protein (Negative) mg/dL Urine Glucose (UA) (Negative) mg/dL Urine Ketones (Negative) mg/dL Urine Blood (Negative) Urine Nitrite (Negative) Urine Bilirubin (Negative) Urine Urobilinogen (<2.0) mg/dL Ur Leukocyte Esterase (Negative) Urine WBC (Auto) (0.0-6.0) /HPF Urine RBC (Auto) (0.0-6.0) /HPF U Epithel Cells (Auto) (0-13.0) /HPF Urine Bacteria (Auto) (Negative) /HPF Urine Mucus /HPF 06/08/20 06/08/20 Range/Units 18:54 Unknown WBC (4.5-11.0) K/mm3 RBC (3.65-5.03) M/mm3 Hgb (10.1-14.3) gm/dl Hct (30.3-42.9) % MCV (79-97) fl MCH (28-32) pg MCHC (30-34) % RDW (13.2-15.2) % Plt Count (140-440) K/mm3 Lymph % (Auto) (13.4-35.0) % [place] % (Auto) (0.0-7.3) % Eos % (Auto) (0.0-4.3) % Baso % (Auto) (0.0-1.8) % Lymph # (Auto) (1.2-5.4) K/mm3 [place] # (Auto) (0.0-0.8) K/mm3 Eos # (Auto) (0.0-0.4) K/mm3 Baso # (Auto) (0.0-0.1) K/mm3 Seg Neutrophils % (40.0-70.0) % Seg Neutrophils # (1.8-7.7) K/mm3 Sodium (137-145) mmol/L Potassium (3.6-5.0) mmol/L Chloride (98-107) mmol/L Carbon Dioxide (22-30) mmol/L Anion Gap mmol/L BUN (7-17) mg/dL Creatinine (0.6-1.2) mg/dL Estimated GFR ml/min BUN/Creatinine Ratio % Glucose (65-100) mg/dL Lactic Acid 1.60 (0.7-2.0) mmol/L Calcium (8.4-10.2) mg/dL Total Bilirubin (0.1-1.2) mg/dL AST (5-40) units/L ALT (7-56) units/L Alkaline Phosphatase (35-129) units/L Troponin T (0.00-0.029) ng/mL Total Protein (6.3-8.2) g/dL Albumin (3.9-5) g/dL Albumin/Globulin Ratio % Lipase (13-60) units/L Urine Color Straw (Yellow) Urine Turbidity Clear (Clear) Urine pH 7.0 (5.0-7.0) Ur Specific [place] 1.012 (1.003-1.030) Urine Protein <15 mg/dl (Negative) mg/dL Urine Glucose (UA) Neg (Negative) mg/dL Urine Ketones Neg (Negative) mg/dL Urine Blood Sm (Negative) Urine Nitrite Neg (Negative) Urine Bilirubin Neg (Negative) Urine Urobilinogen < 2.0 (<2.0) mg/dL Ur Leukocyte Esterase Neg (Negative) Urine WBC (Auto) < 1.0 (0.0-6.0) /HPF Urine RBC (Auto) 9.0 (0.0-6.0) /HPF U Epithel Cells (Auto) 1.0 (0-13.0) /HPF Urine Bacteria (Auto) 1+ (Negative) /HPF Urine Mucus Few /HPF - EKG Data -: EKG Interpreted by Ar EKG shows normal: sinus rhythm, ST-T waves Rate: normal (69) - Radiology Data Radiology results: report reviewed chest X-ray: No acute findings CT abdomen pelvis noncontrast: Unusual appearance of the visualized portions of the descending thoracic aorta and the abdominal aorta as above. For inspiration patient - Medical Decision Making 79-year-old female presents to the hospital with sudden onset abdominal pain nausea and vomiting with pain radiation to the back and chest. Patient does not have any evidence of active aortic dissection on CT angiogram chest abdomen pelvis. 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 Case discussed with vascular surgery who recommends admission and will see the patient in the morning. P.o. potassium provided. Pt is on chronic anticoagulation for afib, currently in sinus rhythm Critical Care Time: No Critical care attestation.: If time is entered above; I have spent that time in minutes in the direct care o f this critically ill patient, excluding procedure time. ED Disposition Clinical Impression: Abdominal pain, Nausea & vomiting, Aortic mural thrombus, Chronic anticoagulation Disposition: OP ADMIT IP TO THIS HOSP Is pt being admited?: Yes Condition: Stable Instructions: Abdominal Pain (ED) Time of Disposition: 01:01 (Dr Kerr/hospitial )
--- NOTE | 2020-06-08 22:40 | Cat Scan Report ---
CT ABDOMEN AND PELVIS WITHOUT CONTRAST INDICATION: abd pain CONTRAST: Without IV COMPARISON: None available. All CT scans at this location are performed using CT dose reduction for ALARA by means of automated e xposure control. FINDINGS: Lung bases are clear. No pneumoperitoneum is seen. No free fluid is noted. No lymphadenopat hy is seen. Small probable cyst is seen in the left kidney. No urinary tract calculi or evidence of o bstruction are seen. No evidence of bowel obstruction is noted. Mild colonic diverticulosis is seen w ithout evidence of diverticulitis. Appendix appears within normal limits. No evidence of bowel obstru ction is seen. Ectasia of the visualized portions of the descending thoracic aorta is seen to a diameter of 3.2 cm. The upper to mid abdominal aorta is of normal caliber though shows a mildly hyperdense thickened wall which is asymmetric and more prominent on the left. Wall of the thoracic aorta is also mildly hyperd ense in asymmetrically thickened. This thickening continues to just above a focal aneurysmal dilatati on of the lower abdominal aorta to a diameter of 3.4 cm just above the bifurcation. I do not see the hyperdense thickening as prominently in the area of the aneurysm. Both common iliac arteries are ecta tic. No evidence of extravasation is seen. IMPRESSION: 1. Unusual appearance of the visualized portions of the descending thoracic aorta and the abdominal a mario alberto as above. 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 2. Cholelithiasis without acute change seen Signer Name: Jaime Her MD Signed: 06/08/2020 10:36 PM Workstation Name: [id number]
--- NOTE | 2020-06-09 00:39 | Cat Scan Report ---
CTA CHEST, ABDOMEN, AND PELVIS WITH IV CONTRAST INDICATION: abd radiating to chest and back, unusual appearance of the aorta on CT abdomen and pelvis tonight CONTRAST: 100 cc Omnipaque 350 IV COMPARISON: CT abdomen and pelvis tonight Three-plane MIP reconstructions were produced. All CT scans at this location are performed using CT d ose reduction for ALARA by means of automated exposure control. FINDINGS: No significant axillary or chest wall abnormalities are seen. Right lobe of the thyroid is enlarged and has a prominently heterogenous appearance with what appears to be a 2.8 cm mixed density mass. Left lobe is not enlarged but is also heterogenous. No mediastinal or hilar masses are seen. Mild coronary artery calcifications are noted. No pleural ef fusions are seen. No obvious endobronchial lesions are noted. No pneumothorax or pneumomediastinum ar e seen. Slight emphysematous changes are noted. Diffuse mild increased interstitial markings are of u nclear chronicity though I suspect are chronic. No definite focal acute infiltrates are seen. No nodu les or masses are noted. Pulmonary arterial system was not targeted on this study and is not well opacified for evaluation. The aorta and other major arteries are well opacified. No stenotic areas are seen. The ascending aort a shows mild aneurysmal dilatation with ectasia of the proximal arch. Aortic luminal diameters are as follows: Ascending just past the aortic valve 3.3 cm Mid ascending 4.1 cm Distal ascending 4.1 cm Proximal arch 3.6 cm Mid arch diameter is 2.6 cm Distal arch 3.1 cm Proximal descending 2.9 cm Mid descending 3.0 cm Distal descending 2.5 cm In the descending aorta a thickened rim of mural thrombus is seen throughout its length which is also mildly seen in the aortic arch. However, I do not see evidence of dissection. No acute abnormalities are seen. Nonvascular abdominal and pelvic findings are as study performed earlier tonight. Additionally with c ontrast would is probably a small hemangioma is seen in the stream upper right lobe of the liver at t he dome of the diaphragm measuring 17 mm and another enhancing lesion is seen in the midportion of th e right lobe measuring 9 mm probably is a small hemangioma. No additional postcontrast findings are n oted not previously reported. The abdominal aorta and major branches are well opacified. Diameter of the abdominal aorta lumen at t he level of the superior mesenteric artery is 2.5 cm, at the renal artery origins 2.2 cm, proximal po rtion of the lower abdominal aorta 2.4 cm and the mid to lower portions of the lower abdominal aorta up to 3 cm. In the mid to distal abdominal aorta there is moderate apparent mural thrombus but I do n ot see clear evidence of dissection. Good flow is seen into the atelectatic common iliac arteries rachel aterally with diameter measurements of 13 mm on the right and 16 mm on the left. Good flow is seen in the iliac systems bilaterally with no additional significant abnormality seen. IMPRESSION: 1. No acute vascular abnormality is seen. 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 There is thickening of the aortic wall in several areas as described which appears to be mural thrombus and I do not see clear evidence of dissection. 2. Abnormal appearance of the thyroid. Follow-up ultrasound in a nonurgent setting is suggested as as clinical follow-up if this is not a known finding. INCIDENTAL THYROID NODULE RECOMMENDATIONS Nonpalpable nodules detected on US or other anatomic imaging studies are termed incidentally discover ed nodules or incidentalomas. Nonpalpable nodules have the same risk of malignancy as palpable nodule s with the same size. Generally, only nodules >1 cm should be evaluated, since they have a greater po tential to be clinically significant cancers. (CARINA, 2009). Follow up for incidental thyroid nodules <1 cm is not recommended. In patients <35 years with an incidental thyroid nodule detected on CT, MRI, or extrathyroidal ultras ound, dedicated thyroid ultrasound is recommended if the nodule is 1 cm, has no suspicious imaging fe atures, and if the patient has normal life expectancy. In patients 35 years with an incidental thyroid nodule detected on CT, MRI, or extrathyroidal ultraso und, dedicated thyroid ultrasound is recommended if the nodule is 1.5 cm, has no suspicious imaging f eatures, and if the patient has normal life expectancy. Signer Name: Jaime Her MD Signed: 06/09/2020 12:35 AM Workstation Name: [id number]
[2020-06-09] MEDS ORDERED: POTASSIUM CHLORIDE ER 20 MEQ TAB PO ONE (00:47)
[2020-06-09] MEDS ORDERED: ACETAMINOPHEN 325 MG TAB PO PRN (01:39)
[2020-06-09] MEDS ORDERED: ONDANSETRON 4 MG/2 ML INJ IV PRN (01:39)
[2020-06-09] MEDS ORDERED: MORPHINE 2 MG/1 ML INJ IV PRN (01:39)
[2020-06-09] MEDS ORDERED: SODIUM CHLORIDE 0.9% 1000 ML 1,000 ML IV SCH (01:45)
--- NOTE | 2020-06-09 01:49 | History and Physical Report ---
History of Present Illness Date of examination: 06/09/20 Date of admission: 06/09/2019 Chief complaint: Abdominal Pain Nausea and Vomiting History of present illness: 79-year-old female with known history of hypertension, atrial fibrillation, dyslipidemia, coronary artery disease presenting to the emergency room today complaining of sudden onset of abdominal pain. Abdominal pain was said to have started while driving home from the [place]. On a scale of 10 pain was about 9/10 in severity. Pain is in the lower abdomen and radiating towards the back and upper chest. There is no no relieving or exacerbating factor. Patient has had multiple episodes of nausea and vomiting but denies any diarrhea. Patient denies any fever or chills, no headache or dizziness, no chest pain or shortness of breath, no hematuria or dysuria. She denies any sick contacts and no recent travel. Denies any contact with anyone with COVID-19. Review of patient's record indicates that patient was here sometime in April 2020 with a complaint of chest pain. Work-up at that time reveals a negative stress test. She had an episode A. fib with RVR. Echocardiogram at that time reveals EF of 61%. Her chest pain was said to be possibly due to costochondritis. Work-up in the emergency room today, CTA of the abdomen and pelvis reveals finding suspicious for mural thrombus in the abdominal aorta. Labs reveals mild hypokalemia. Vascular surgeon Dr. Obando has been consulted by the ER physician for evaluation. Past History Past Medical History: atrial fib, hypertension, hyperlipidemia Past Surgical History: hysterectomy, Other (Salvador.tubal ligation,Thyroidectomy,Finger fracture) Social history: no significant social history Family history: no significant family history Medications and Allergies Allergies Allergy/AdvReac Type Severity Reaction Status Date / Time Penicillins Allergy Swelling Verified 06/08/20 18:17 Home Medications Medication Instructions Recorded Confirmed Last Taken Type Aspirin [Aspirin BABY CHEW TAB] 81 mg PO QDAY 04/24/20 04/24/20 Unknown History Apixaban [Eliquis] 2.5 mg PO Q12HR #60 tab 04/25/20 Unknown Rx Metoprolol [Lopressor TAB] 25 mg PO BID #60 tablet 04/25/20 Unknown Rx Nitroglycerin [Nitrostat] 0.4 mg SL Q5M PRN #14 tablet 04/25/20 Unknown Rx Simvastatin 20 mg PO QDAY #30 tab 04/25/20 Unknown Rx amLODIPine 10 mg PO DAILY #30 tab 04/25/20 Unknown Rx Active Meds: Active Medications Acetaminophen (Acetaminophen 325 Mg Tab) 650 mg PO Q4H PRN PRN Reason: Pain MILD(1-3)/Fever >100.5/SANCHEZ Sodium Chloride (Nacl 0.9% 1000 Ml) 1,000 mls @ 125 mls/hr IV DIRECT JESSICA Morphine Sulfate (Morphine 2 Mg/1 Ml Inj) 2 mg IV Q4H PRN PRN Reason: Pain, Moderate (4-6) Ondansetron HCl (Ondansetron 4 Mg/2 Ml Inj) 4 mg IV Q8H PRN PRN Reason: Nausea And Vomiting Sodium Chloride (Sodium Chloride 0.9% 10 Ml Flush Syringe) 10 ml IV BID JESSICA Sodium Chloride (Sodium Chloride 0.9% 10 Ml Flush Syringe) 10 ml IV PRN PRN PRN Reason: LINE FLUSH Review of Systems Constitutional: no fever, no chills Ears, nose, mouth and throat: no nasal congestion, no sore throat Cardiovascular: no chest pain, no palpitations Respiratory: no cough, no shortness of breath Gastrointestinal: abdominal pain, nausea, vomiting, no diarrhea Genitourinary Female: no flank pain, no dysuria, no hematuria, no nocturia Musculoskeletal: no neck pain, no low back pain Integumentary: no rash, no pruritis Neurological: no headaches, no confusion Psychiatric: no anxiety, no depression Exam - Constitutional Vitals: Temp Pulse Resp BP Pulse Ox 97.7 F 72 18 144/94 98 06/08/20 18:19 06/08/20 18:19 06/08/20 18:19 06/08/20 18:19 06/08/20 18:19 General appearance: Present: no acute distress, well-nourished - EENT Eyes: Present: PERRL, EOM intact. Absent: scleral icterus ENT: hearing intact, clear oral mucosa, dentition normal - Neck Neck: Present: supple, normal ROM - Respiratory Respiratory effort: normal Respiratory: bilateral: CTA - Cardiovascular Rhythm: regular Heart Sounds: Present: S1 & S2. Absent: gallop, systolic murmur, diastolic murmur, rub - Extremities Extremities: no ischemia, pulses intact, pulses symmetrical, No edema, Full ROM Peripheral Pulses: within normal limits - Abdominal General gastrointestinal: Present: soft, tender (Mild tenderness in the epigastric region and in the lower quadrants bilaterally. No rebound tenderness. No guarding.), normal bowel sounds. Absent: mass - Integumentary Integumentary: Present: clear, warm, dry. Absent: rash - Musculoskeletal Musculoskeletal: strength equal bilaterally - Psychiatric Psychiatric: appropriate mood/affect, intact judgment & insight, memory intact, cooperative - Neurologic Neurologic: CNII-XII intact, no focal deficits, moves all extremities HEART Score - HEART Score Troponin: Troponin T < 0.010 ng/mL (0.00-0.029) 06/08/20 18:54 Results - Labs CBC & Chem 7: 06/08/20 18:54 06/08/20 18:54 Labs: Abnormal lab results 06/08/20 Range/Units 18:54 Potassium 3.4 L (3.6-5.0) mmol/L Glucose 140 H (65-100) mg/dL Assessment and Plan - Patient Problems (1) Abdominal pain Current Visit: Yes Status: Acute Plan to address problem: Possibly secondary to Mural thrombus. Patient placed on IV analgesic medication as needed. (2) Aortic mural thrombus Current Visit: Yes Status: Acute Plan to address problem: Vascular surgeon has been consulted for evaluation. Patient currently on anticoagulation. (3) Nausea & vomiting Current Visit: Yes Status: Acute Plan to address problem: Patient placed on IV Zofran as needed. (4) Paroxysmal atrial fibrillation Current Visit: No Status: Acute Plan to address problem: Rate is currently controlled. Patient also on anticoagulation. (5) Hyperlipidemia Current Visit: No Status: Chronic Plan to address problem: We will resume routine home medications and monitor lipid profile. (6) Hypertension Current Visit: No Status: Chronic Plan to address problem: We will resume routine home medications and monitor vital signs closely. (7) Hypokalemia Current Visit: Yes Status: Acute Plan to address problem: We will replete potassium and monitor chemistry. (8) DVT prophylaxis Current Visit: No Status: Acute Plan to address problem: Patient currently on anticoagulation. (9) Full code status Current Visit: No Status: Acute Plan to address problem: Patient is a full code.
--- NOTE | 2020-06-09 10:16 | Consultation ---
History of Present Illness - Reason for Consult Consult date: 06/09/20 Abdominal pain, PVD - History of Present Illness Patient with a history of new onset abdominal pain which she describes as mid epigastric with some extension to her back. There was sudden onset of this pain. Patient has not previously experienced this pain. She had previously presented to this hospital for chest pain for which she underwent a cardiac work-up. CTA of the chest abdomen and pelvis were performed. This demonstrates ectasia of the ascending aorta as well as aneurysmal dilatation of the distal abdominal aorta just proximal to the bifurcation. Mural thrombus is present throughout. There is mild narrowing of the celiac artery however the SMA is widely patent. No intraluminal thrombus is identified within the mesenteric vessels. Incidentally noted is multiple small gallstones within the gallbladder and prominence of the pancreatic duct. Past History Past Medical History: atrial fib, hypertension, hyperlipidemia Past Surgical History: hysterectomy, Other (Salvador.tubal ligation,Thyroidectomy,Finger fracture) Social history: no significant social history Family history: no significant family history Medications and Allergies Allergies Allergy/AdvReac Type Severity Reaction Status Date / Time Penicillins Allergy Swelling Verified 06/08/20 18:17 Home Medications Medication Instructions Recorded Confirmed Last Taken Type Aspirin [Aspirin BABY CHEW TAB] 81 mg PO QDAY 04/24/20 04/24/20 Unknown History Apixaban [Eliquis] 2.5 mg PO Q12HR #60 tab 04/25/20 Unknown Rx Metoprolol [Lopressor TAB] 25 mg PO BID #60 tablet 04/25/20 Unknown Rx Nitroglycerin [Nitrostat] 0.4 mg SL Q5M PRN #14 tablet 04/25/20 Unknown Rx Simvastatin 20 mg PO QDAY #30 tab 04/25/20 Unknown Rx amLODIPine 10 mg PO DAILY #30 tab 04/25/20 Unknown Rx Active Meds: Active Medications Acetaminophen (Acetaminophen 325 Mg Tab) 650 mg PO Q4H PRN PRN Reason: Pain MILD(1-3)/Fever >100.5/SANCHEZ Sodium Chloride (Nacl 0.9% 1000 Ml) 1,000 mls @ 125 mls/hr IV DIRECT JESSICA Morphine Sulfate (Morphine 2 Mg/1 Ml Inj) 2 mg IV Q4H PRN PRN Reason: Pain, Moderate (4-6) Ondansetron HCl (Ondansetron 4 Mg/2 Ml Inj) 4 mg IV Q8H PRN PRN Reason: Nausea And Vomiting Sodium Chloride (Sodium Chloride 0.9% 10 Ml Flush Syringe) 10 ml IV BID JESSICA Sodium Chloride (Sodium Chloride 0.9% 10 Ml Flush Syringe) 10 ml IV PRN PRN PRN Reason: LINE FLUSH Review of Systems All systems: negative Exam - Constitutional Vitals: Temp Pulse Resp BP Pulse Ox 98.2 F 74 18 122/81 98 06/09/20 04:35 06/09/20 04:35 06/09/20 04:35 06/09/20 04:35 06/09/20 04:35 General appearance: Present: no acute distress - EENT Eyes: Present: EOM intact ENT: hearing intact - Neck Neck: Present: supple - Respiratory Respiratory effort: normal - Extremities Extremities: no ischemia, Full ROM - Abdominal General gastrointestinal: Present: soft, non-tender - Rectal Rectal Exam: deferred - Psychiatric Psychiatric: appropriate mood/affect, cooperative Results - Labs CBC & Chem 7: 06/08/20 18:54 06/08/20 18:54 Labs: Abnormal lab results 06/08/20 Range/Units 18:54 Potassium 3.4 L (3.6-5.0) mmol/L Glucose 140 H (65-100) mg/dL - Imaging and Cardiology CT scan - abdomen: report reviewed, image reviewed CT scan - chest: report reviewed, image reviewed CT scan - pelvis: report reviewed, image reviewed Assessment and Plan Patient with a history of midepigastric pain now resolved. She did receive morphine in the ER. Patient is a strong family history with her sister dying of gastric cancer approximately 1 year ago. Additionally, the patient has numerous gallstones with dilation of the pancreatic duct which may represent a recently passed stone. 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 She will require excellent blood pressure control and serial monitoring. With regards to the patient's abdominal pain, the patient likely needs to be evaluated and worked up by GI as an outpatient. No complaints at time of examination. Okay to discharge from a interventional radiology and vascular standpoint.
[2020-06-09 15:17] VITALS: BP 136/71
--- NOTE | 2020-06-09 16:27 | Discharge Summary ---
Providers - Providers Date of Admission: 06/09/20 01:05 Date of discharge: 06/09/20 Attending physician: PAM ROBBINS 06/09/20 00:56 Consult to Physician [CONS] Urgent Comment: Consulting Provider: TEZ OBANDO Physician Instructions: Reason For Exam: Aorta mural thrombus, abdominal pain Primary care physician: EDUCATION ADMINISTRATIVE ASSISTANT Hospitalization Condition: Stable Hospital course: 79-year-old female with known history of hypertension, atrial fibrillation, dyslipidemia, coronary artery disease presenting to the emergency room today c omplaining of sudden onset of abdominal pain. Abdominal pain was said to have started while [place] the [place]. On a scale of 10 pain was about 9/10 in severity. Pain is in the lower abdomen and radiating towards the back and upper chest. There is no no relieving or exacerbating factor. Patient has had multiple episodes of nausea and vomiting but denies any diarrhea. Patient denies any fever or chills, no headache or dizziness, no chest pain or shortness of breath, no hematuria or dysuria. She denies any sick contacts and no recent travel. Denies any contact with anyone with COVID-19. Review of patient's record indicates that patient was here sometime in April 2020 with a complaint of chest pain. Work-up at that time reveals a negative stress test. She had an episode A. fib with RVR. Echocardiogram at that time reveals EF of 61%. Her chest pain was said to be possibly due to costochondritis. Work-up in the emergency room today, CTA of the abdomen and pelvis reveals finding suspicious for mural thrombus in the abdominal aorta. Labs reveals mild hypokalemia. Vascular surgeon Dr. Obando has been consulted by the ER physician for evaluation. Assessment and Plan - Patient Problems (1)Cholelithiasis Current Visit: Yes Status: Acute Plan to address problem: possibly passed No pain at this time (2) Aortic mural thrombus Current Visit: Yes Status: Acute Plan to address problem: Patient with a history of midepigastric pain now resolved. She did receive morphine in the ER. Patient is a strong family history with her sister dying of gastric cancer approximately 1 year ago. Additionally, the patient has numerous gallstones with dilation of the pancreatic duct which may represent a recently passed stone. With regards to the patient's ascending aortic ectasia and distal abdominal aortic aneurysmal dilatation, the patient will need to follow-up in vascular [facility] office in 2 weeks. She will require excellent blood pressure control and serial monitoring. With regards to the patient's abdominal pain, the patient likely needs to be evaluated and worked up by GI as an outpatient. No complaints at time of examination. Okay to discharge from a interventional radiology and vascular standpoint. (3) Nausea & vomiting Current Visit: Yes Status: Acute Plan to address problem: Patient placed on IV Zofran as needed. (4) Paroxysmal atrial fibrillation Current Visit: No Status: Acute Plan to address problem: Rate is currently controlled. Patient also on anticoagulation. (5) Hyperlipidemia Current Visit: No Status: Chronic Plan to address problem: We will resume routine home medications and monitor lipid profile. (6) Hypertension Current Visit: No Status: Chronic Plan to address problem: We will resume routine home medications and monitor vital signs closely. (7) Hypokalemia Current Visit: Yes Status: Acute Plan to address problem: We will replete potassium and monitor chemistry. (8) DVT prophylaxis Current Visit: No Status: Acute Plan to address problem: Patient currently on anticoagulation. (9) Full code status Current Visit: No Status: Acute Plan to address problem: Patient is a full code. Disposition: DC-01 TO HOME OR SELFCARE - Discharge Diagnoses (1) Aortic mural thrombus Status: Chronic Comment: Patient with a history of midepigastric pain now resolved. She did receive morphine in the ER. Patient is a strong family history with her sister dying of gastric cancer approximately 1 year ago. Additionally, the patient has numerous gallstones with dilation of the pancreatic duct which may represent a recently passed stone. 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 She will require excellent blood pressure control and serial monitoring. With regards to the patient's abdominal pain, the patient likely needs to be evaluated and worked up by GI as an outpatient. No complaints at time of examination. Okay to discharge from a interventional radiology and vascular standpoint. (2) Chronic anticoagulation Status: Acute (3) Hypokalemia Status: Acute (4) Paroxysmal atrial fibrillation Status: Chronic Comment: In Eliquis (5) Hyperlipidemia Status: Chronic (6) Hypertension Status: Chronic Qualifiers: Hypertension type: essential hypertension Qualified Code(s): I10 - Essential (primary) hypertension (7) DVT prophylaxis Status: Acute Comment: On Eliquis Core Measure Documentation - Palliative Care Palliative Care/ Comfort Measures: Not Applicable - Core Measures Any of the following diagnoses?: none - VTE Discharge Requirements Deep Vein Thrombosis/Pulmonary Embolism Present on Admission: No Has pt received <5 days of overlap therapy or INR<2.0: No Anticoagulant overlap therapy prescribed at discharge: No Contraindication No Overlap Therapy order at DC: Not Indicated Exam - Constitutional Vitals: Temp Pulse Resp BP Pulse Ox 98.2 F 60 18 136/71 96 06/09/20 04:35 06/09/20 15:16 06/09/20 15:16 06/09/20 15:16 06/09/20 15:16 General appearance: Present: no acute distress, well-nourished - EENT Eyes: Present: PERRL ENT: hearing intact, clear oral mucosa - Neck Neck: Present: supple, normal ROM - Respiratory Respiratory effort: normal Respiratory: bilateral: CTA - Cardiovascular Heart rate: 78 Rhythm: regular Heart Sounds: Present: S1 & S2. Absent: rub, click - Extremities Extremities: pulses symmetrical, No edema Peripheral Pulses: within normal limits - Abdominal General gastrointestinal: Present: soft, non-tender, non-distended, normal bowel sounds Female genitourinary: Present: normal - Integumentary Integumentary: Present: clear, warm, dry - Musculoskeletal Musculoskeletal: gait normal, strength equal bilaterally - Psychiatric Psychiatric: appropriate mood/affect, intact judgment & insight - Neurologic Neurologic: CNII-XII intact, moves all extremities Plan Activity: no restrictions Diet: low fat, low cholesterol, low salt Follow up with: TRACEY PENA MD [Primary Care Provider] - 7 Days TEZ OBANDO MD [Staff Physician] - 7 Days GEM CASTELLANO MD [Staff Physician] - 7 Days
== END 2020-06-09 20:22 | disposition home or self-care (01) ==
LOC: ED 18:01 → 3A 06-09 01:05 → 4A 06-09 05:50
PROVIDERS: ADMIT Internal Medicine Geriatric Medicine; ATTEND Internal Medicine
DX: I74.10 Embolism and thrombosis of unspecified parts of aorta (principal); R11.2 Nausea with vomiting, unspecified; R10.9 Unspecified abdominal pain; I48.0 Paroxysmal atrial fibrillation; I10 Essential (primary) hypertension; I25.10 Atherosclerotic heart disease of native coronary artery without angina pectoris; E87.6 Hypokalemia; E78.5 Hyperlipidemia, unspecified; E78.00 Pure hypercholesterolemia, unspecified; Z90.710 Acquired absence of both cervix and uterus; Z98.51 Tubal ligation status; Z79.01 Long term (current) use of anticoagulants; Z98.890 Other specified postprocedural states; Z79.82 Long term (current) use of aspirin
CPT/HCPCS: 36415; 71046; 71275; 74174; 74176; 80053; 81001; 82140; 83690; 84484; 85025; 93005; 96361; 96374; 96375; 96376; 99285; G0378; J2270; J2405; J7030; Q9967